=== PATIENT | female | born 1965 | race Caucasian/White ===

== ENCOUNTER 2017-03-18 06:30 | Day surgery (SDC) | payer OTHER ==
[2017-03-18] VITALS (13 sets, daily range): BP systolic 118–147; BP diastolic 72–90; PULSE 66–104; RESP 15–21; Ht 167.6 cm; Wt 82.0 kg
[~2017-03-18] VITALS: Ht 167.6 cm; Wt 82.0 kg
--- NOTE | 2017-03-18 05:14 | PREOPHP ---
DATE OF ADMISSION: 03/18/2017 HISTORY OF PRESENT ILLNESS: This is a 51-year-old lady, 5, para 2 with [address] normal menstrual period was few days prior to admission. She was admitted for D and C, hysterosc opy, possible suction curettage. The patient desires to go for estrogen replacement and the ultraso und revealed borderline thickening of the endometrium. Endometrial biopsy was attempted but the cer vix was stenotic, so she was admitted for the above procedure. The procedures were explained to the patient and she understood everything totally. The risks, benefits, alternatives, were discussed w ith her as well. PAST PERSONAL HISTORY: No history of diabetes, TB, asthma. ALLERGIES: NONE. MEDICATIONS: Takes high blood pressure medication. GYNECOLOGIC HISTORY: Had menarche at the age of 9, every 28 days interval, 3 to 4 days duration, an d moderate in amount. FAMILY HISTORY: Parents have high blood pressure and diabetes. She had head surgery 1999. She had gallbladder surgery 2007. She had 2 normal deliveries. REVIEW OF SYSTEMS: CARDIOVASCULAR: No chest pains. RESPIRATORY: No cough. GASTROINTESTINAL: No diarrhea, no vomiting. GENITOURINARY: No dysuria. PHYSICAL EXAMINATION: GENERAL: Reveals a conscious coherent lady and in acute distress. VITAL SIGNS: Her blood pressure 130/80, pulse rate 80 per minute, respirations 16 per minute. BREASTS, HEART AND LUNGS: Within normal limits. ABDOMEN: Soft. No organomegaly. PELVIC: Revealed the cervix to be firm, uterus of the upper limits of normal, and adnexa were negat leisa for masses. RECTAL EXAMINATION: Confirmed the pelvic findings. EXTREMITIES: No pedal edema. ADMITTING DIAGNOSIS: Borderline endometrial thickening, rule out hyperplasia and menopause. PLAN: The patient was planned to have the above procedure. Dictated By: AIDE ORTIZ/ILANA Conf#: [id number] DID#: [id number]
[~2017-03-18 06:30] MED LIST: GEMFIBROZIL; HYDROXYCHLOROQUINE; LEVOTHYROXINE; LOSA100T7 PO; OMEP40CA6 PO; PROTONIX
[2017-03-18] MEDS ORDERED: AMLO5TAB4 PO (07:37)
[2017-03-18] MEDS ORDERED: GEMF600T60 PO (07:41)
[2017-03-18] MEDS ORDERED: VALA500T PO (07:42)
[2017-03-18] MEDS ORDERED: THY90 PO (07:42)
[2017-03-18] MEDS ORDERED: LIDOCAINE 2% (SDV) 5 ML INJ ONE (08:12)
[2017-03-18] MEDS ORDERED: ROCURONIUM 50 MG INJ ONE (08:12)
[2017-03-18] MEDS ORDERED: MIDAZOLAM 1 MG/ML 2 ML INJ ONE (08:12)
[2017-03-18] MEDS ORDERED: GLYCOPYRROLATE 0.4 MG INJ ONE (08:12)
[2017-03-18] MEDS ORDERED: NEOSTIGMINE 3 MG/3 ML SYRINGE ONE (08:12)
[2017-03-18] MEDS ORDERED: PROPOFOL 20 ML ONE (08:12)
[2017-03-18] MEDS ORDERED: FENTAnyl 50 MCG/ML VIAL ONE (08:12)
[2017-03-18] MEDS ORDERED: DEXAMETHASONE 4 MG/ML 1 ML INJ ONE (08:25)
[2017-03-18] MEDS ORDERED: CEFAZOLIN 1 GM INJ ONE (08:25)
[2017-03-18] MEDS ORDERED: ONDANSETRON 4 MG INJ ONE (08:26)
[2017-03-18] MEDS ORDERED: ATROPINE 1 MG/10 ML SYRINGE IV PRN (08:30)
[2017-03-18] MEDS ORDERED: HYDROmorphONE (0.2 MG/ML) 10ML SYG IV PRN ×3 (08:30)
[2017-03-18] MEDS ORDERED: LABETALOL HCL 20MG INJ IV PRN (08:30)
[2017-03-18] MEDS ORDERED: OXYCODONE/ACETAMINOPHEN (5/325) TAB PO PRN ×2 (08:30)
[2017-03-18] MEDS ORDERED: MEPERIDINE 25 MG INJ IV PRN (08:30)
[2017-03-18] MEDS ORDERED: FENTAnyl 50 MCG/ML VIAL IV PRN ×2 (08:30)
[2017-03-18] MEDS ORDERED: DIPHENHYDRAMINE 50 MG INJ IV PRN (08:30)
[2017-03-18] MEDS ORDERED: morphine (1 MG/ML) 10ML SYRINGE IV PRN ×2 (08:30)
[2017-03-18] MEDS ORDERED: EPHEDrine SULFATE 50 MG/5 ML SYG IV PRN (08:30)
[2017-03-18] MEDS ORDERED: ONDANSETRON 4 MG INJ IV PRN (08:30)
[2017-03-18] MEDS ORDERED: hydrALAzine 20 MG INJ IV PRN (08:30)
[2017-03-18] MEDS ORDERED: MIDAZOLAM 1 MG/ML 2 ML INJ IV PRN (08:30)
[2017-03-18] MEDS: morphine (1 MG/ML) 10ML SYRINGE IV PRN ×2 (09:02→09:19)
--- NOTE | 2017-03-20 06:06 | OPR ---
DATE OF OPERATION: 03/18/2017 PREOPERATIVE DIAGNOSIS: Endometrial thickening, rule out endometrial hyperplasia. POSTOPERATIVE DIAGNOSIS: Pending pathology report. SURGEON: Aide Gonzales MD TREATMENT TECHNICIAN: Delroy sevilla. ANESTHESIA: General. OPERATION PERFORMED: Fractional dilatation and curettage, hysteroscopy, and suction curettage. OPERATIVE TECHNIQUE: Under general anesthesia, the patient was prepped and draped in the usual on license [facility] ion for vaginal surgery. Pelvic exam under anesthesia revealed the cervix to be firm, uterus of nor mal size, and adnexa were negative for masses. Then, the heavy weight vaginal retractor was put in place and the anterior lip of the cervix was grasped with an Allis clamp. Endocervical dilatation u p to [place] 6 was proceeded. Uterus was sounded to about 3 inches. Then, the hysteroscope was inser iván inside the uterine cavity and connected with the light source. The uterus was distended with no rmal saline. There were no polyps or fibroids seen. The uterine lining was noted to be very atroph ic. Then, endocervical curettage was performed, and a small amount of tissue was obtained. Endomet rial curettage was performed, and a small amount of tissue was obtained. Suction tip size 7 was ins erted inside the uterine cavity, and suction curettage was performed. A small amount of tissue was obtained. The uterus was intact during and after the procedure. The patient tolerated the procedur e well. Estimated blood loss was minimal. Vital signs were stable during and after the procedure. Dictated By: AIDE ORTIZ/ILANA Conf#: [id number] DID#: [id number]
== END 2017-03-18 10:35 | disposition home or self-care (01) ==
LOC: SDS 06:30
PROVIDERS: ATTEND Obstetrics & Gynecology
DX: R93.8 Abnormal findings on diagnostic imaging of other specified body structures (principal); I10 Essential (primary) hypertension; E03.9 Hypothyroidism, unspecified; Z87.891 Personal history of nicotine dependence
CPT/HCPCS: 58558; 84703; 86850; 86900; 86901; 88305; J0690; J1100; J2250; J2270; J2405; J2710; J3010; Z7512; Z7610

== ENCOUNTER 2017-04-05 21:25 | Inpatient (IN) | payer OTHER ==
[~2017-04-05] VITALS: Ht 167.6 cm; Wt 82.1 kg
[~2017-04-05 21:25] MED LIST changes: +AMLO5TAB4 PO; +GEMF600T60 PO; -GEMFIBROZIL; -HYDROXYCHLOROQUINE; -LEVOTHYROXINE; -PROTONIX; +THY90 PO; +VALA500T PO
[2017-04-05 23:40] VITALS: BP 118/66; PULSE 76; RESP 18
[2017-04-05 23:46] VITALS: Ht 167.6 cm; Wt 82.1 kg
[2017-04-06] MEDS ORDERED: morphine 4 MG/ML VIAL IV PRN (00:30)
[2017-04-06] MEDS ORDERED: traMADol 50 MG TAB PO PRN (00:30)
[2017-04-06] MEDS ORDERED: ONDANSETRON 4 MG INJ IV PRN (00:30)
[2017-04-06] MEDS: DEXTROSE 5%-0.45% NACL 1,000 ML IV SCH ×3 (01:10→18:07)
[2017-04-06 02:24] VITALS: BP 118/66; RESP 18
[2017-04-06 08:01] VITALS: BP 116/69; RESP 20
[2017-04-06] MEDS: FAMOTIDINE 20 MG INJ IV SCH ×2 (08:44→20:41)
[2017-04-06] MEDS: KETOROLAC 30 MG INJ IV PRN ×2 (12:42→20:47)
--- NOTE | 2017-04-06 18:06 | PN ---
Date/Time of Note Date/Time of Note DATE: 04/06/17 TIME: 18:03 Assessment/Plan VTE Prophylaxis VTE Prophylaxis Intervention: SCD's Lines/Catheters IV Catheter Type (from Nrsg): Peripheral IV Urinary Cath still in place: No Assessment/Plan Chief Complaint/Hosp Course 1. Abdominal pain secondary to pancreatitis and/or hepatitis LFTs are elevated, will check a hepatitis panel, will follow up on LFTs in a.m. GI consultation Start a clear liquid diet Obtain abdominal ultrasound to rule out any residual stones in the biliary system and to evaluate the liver Pain control Prophylaxis: SCDs Problems: Subjective 24 Hr Interval Summary Gastrointestinal: pain Exam/Review of Systems Vital Signs Vitals Vital Signs Date Time Temp Pulse Resp B/P Pulse Ox O2 Delivery O2 Flow Rate FiO2 04/06/17 08:01 98.1 68 20 116/69 96 04/05/17 23:40 Room Air Intake and Output 04/05/17 04/05/17 04/06/17 15:00 23:00 07:00 Intake Total 500 ml Balance 500 ml Exam Constitutional: alert Respiratory: clear to auscultation Cardiovascular: regular rate and rhythm Gastrointestinal: soft, tender, No distended Musculoskeletal: nl extremities to inspection Medications Medications Current Medications Dextrose/Sodium Chloride (D5-1/2ns) 1,000 ml @ 125 mls/hr Q8H IV Last administered on 04/06/17 08:43; Admin Dose 125 MLS/HR; Start 04/06/17 at 00:30 Morphine Sulfate (morphine) 4 mg Q4H PRN IV pain; Start 04/06/17 at 00:30 Ketorolac Tromethamine (Toradol) 30 mg Q6H PRN IV PAIN Last administered on 12:42; Admin Dose 30 MG; Start 04/06/17 at 00:30; Stop 04/09/17 at 00:29 Tramadol HCl (Ultram) 50 mg Q6H PRN PO pain Last administered on 04/06/17 01: 10; Admin Dose 50 MG; Start 04/06/17 at 00:30 Ondansetron HCl (Zofran Inj) 4 mg Q6H PRN IV NAUSEA AND/OR VOMITING; Start at 00:30 Famotidine (Pepcid Iv) 20 mg BID IV Last administered on 04/06/17 08:44; Admin Dose 20 MG; Start 04/06/17 at 09:00 MAMADOU ALICEA April 06, 2017 18:06
[2017-04-06 20:02] VITALS: BP 130/75; RESP 18
[2017-04-07] MEDS: DEXTROSE 5%-0.45% NACL 1,000 ML IV SCH ×5 (00:30→22:35)
[2017-04-07 05:55] LABS: ADD SCAN DIFF NO; HAAIG REFLEX REFLEX FILED
[2017-04-07 06:10] LABS: BASOPHILS % 0.6 % (0.0-2.0); EOSINOPHILS # 0.2 10^3/ul (0.0-0.5); HEMATOCRIT 35.4 % (37.0-47.0); HEMOGLOBIN 12.3 g/dl (12.0-16.0); LYMPHOCYTES # 1.4 10^3/ul (0.8-2.9); LYMPHOCYTES % 41.3 % (15.0-51.0); MEAN CORPUSCULAR HEMOGLOBIN 30.3 pg (29.0-33.0); MEAN CORPUSCULAR HGB CONC 34.7 g/dl (32.0-37.0); MEAN CORPUSCULAR VOLUME 87.2 fl (82.0-101.0); MEAN PLATELET VOLUME 10.6 fl (7.4-10.4); MONOCYTE # 0.4 10^3/ul (0.3-0.9); MONOCYTES % 12.7 % (0.0-11.0); NEUTROPHIL # 1.4 10^3/ul (1.6-7.5); NEUTROPHILS % 40.1 % (39.0-77.0); PLATELET COUNT 221 10^3/UL (140-415); RED BLOOD COUNT 4.06 10^6/ul (4.20-5.40); RED CELL DISTRIBUTION WIDTH 14.6 % (11.5-14.5); WHITE BLOOD COUNT 3.4 10^3/ul (4.8-10.8)
[2017-04-07 06:33] LABS: ALBUMIN 3.2 g/dl (3.3-4.9); ALBUMIN/GLOBULIN RATIO 1.18; BILIRUBIN,INDIRECT 0.3 mg/dl (0-1.1); BILIRUBIN,TOTAL 0.3 mg/dl (0.2-1.3); CALCIUM 8.5 mg/dl (8.4-10.2); CHOL/HDL RATIO 3.9 RATIO; CREATININE 0.59 mg/dl (0.44-1.00); MAGNESIUM 1.9 mg/dl (1.7-2.5); PHOSPHORUS 2.5 mg/dl (2.5-4.9); POTASSIUM 3.3 mmol/L (3.5-5.1); TOTAL PROTEIN 5.9 g/dl (6.1-8.1)
[2017-04-07] MEDS: KETOROLAC 30 MG INJ IV PRN (07:13)
[2017-04-07 07:44] LABS: HEPATITIS B CORE ANTIBODY NEGATIVE (NEGATIVE)
[2017-04-07 08:09] VITALS: BP 139/83; RESP 18
[2017-04-07] MEDS: FAMOTIDINE 20 MG INJ IV SCH (08:48)
--- NOTE | 2017-04-07 10:10 | RADRPT ---
PROCEDURE: US Abdomen. CLINICAL INDICATION: abdominal pain TECHNIQUE: Multiple real-time images were acquired of the patient's abdomen utilizing a high reso lution transducer. COMPARISON: CT 05/14/2015 FINDINGS: The liver demonstrates normal echogenicity and size and no focal solid appearing lesions are seen. There is a 2.3 cm right hepatic cyst which was present on prior CT. The gallbladder is removed. No intra or extrahepatic biliary dilatation is seen. The common bile duct measures 6 mm in maximal dim ension. The pancreas demonstrates a indeterminate echogenic focus measuring 1.5 cm near the head of the pancreas not fully characterize by this exam. No free fluid is identified. The right kidney measures 12.7 cm without hydronephrosis. Visualized portion of the aorta and IVC are unremarkable. IMPRESSION: Possible pancreatic echogenic structure can be better assessed with a CT of the abdomen. RPTAT: AA .Parker Trevizo MD, Date Time Electronically viewed and signed by .Parker Trevizo MD, MD on 04/07/2017 10:10 .J/
[2017-04-07] MEDS ORDERED: POTASSIUM CHLORIDE 250 ML IVPB ONE (12:00)
[2017-04-07] MEDS ORDERED: NON-FORMULARY/PATIENT OWN MED (Omeprazole* 40 MG) PO SCH (16:00)
[2017-04-07] MEDS ORDERED: BARIUM SULF 2% 450 ML BTL (BERRY SMOOTHIE) PO ONE (16:00)
[2017-04-07] MEDS ORDERED: VALACYCLOVIR 500 MG TAB PO SCH (16:00)
[2017-04-07] MEDS ORDERED: BARIUM SULFATE 0.1% 450 ML BTL (VOLUMEN) PO ONE (16:00)
--- NOTE | 2017-04-07 16:31 | PN ---
Date/Time of Note Date/Time of Note DATE: 04/07/17 TIME: 16:10 Assessment/Plan VTE Prophylaxis VTE Prophylaxis Intervention: ambulation, SCD's Lines/Catheters IV Catheter Type (from Nrs): Peripheral IV Urinary Cath still in place: No Assessment/Plan Assessment/Plan 1. Epigastric abdominal pain with bloating, nausea vomiting, and distention 2. Vaginal burning and pain for the last 1 year with history of herpes genitalia on valacyclovir likely secondary to postherpetic neuralgia * Sounds like patient has been treated extensively for Nathaly with no improvement and even with hormonal therapy with no improvement as well. 3. Hypertension: Controlled 4. Dyslipidemia on gemfibrozil which could be causing her transaminitis 5. Hypothyroidism on Synthroid 6. Hypokalemia 7. Mild hyponatremia 8. Abnormal pancreatic density on ultrasound Plan: * Will order a CT of the abdomen with pancreatic protocol to evaluate * will increase patient's valacyclovir to treatment doses / Will start patient on Lyrica to help with neuralgia * Hold gemfibrozil for transaminitis /triglyceride levels are within normal range /patient has only low HDL for which we can treat with fish oil. * For possible endoscopy, GI consultation /put patient on twice daily PPI. * Will also get a [employer] consultation. * Further interventions per clinical course * Plan of care has been discussed with patient questions answered. Subjective 24 Hr Interval Summary Free Text/Dictation Patient has multiple complaints. 1. severe burning sensation in the vagina. Burning sensation can be so bad she rates it as a 10 out of 10 at times. It has adversely affected her life and she is getting depressed. Patient states that she has been treated with antifungal therapy, she has also been treated with hormonal therapy with multiple testing and her doctors have not been able to figure out was going on. Upon my review of her medications, patient is on valacyclovir at suppressants doses. 2. Patient also complaining of abdominal distention fullness and bloating associated with burning sensation in the back of her mouth and a lot of reflux symptoms. Patient is amenable to endoscopy. 3. Patient complaining of supraorbital and infraorbital swelling up on a daily awakening that improves as the day progresses Exam/Review of Systems Vital Signs Vitals Vital Signs Date Time Temp Pulse Resp B/P Pulse Ox O2 Delivery O2 Flow Rate FiO2 04/07/17 08:09 97.8 68 18 139/83 96 04/05/17 23:40 Room Air Intake and Output 04/06/17 04/06/17 04/07/17 15:00 23:00 07:00 Intake Total 500 ml 1000 ml 1500 ml Balance 500 ml 1000 ml 1500 ml Exam Constitutional: alert Respiratory: clear to auscultation Cardiovascular: regular rate and rhythm Gastrointestinal: soft, tender, No distended Musculoskeletal: nl extremities to inspection Genitourinary - Female: other (Patient has normal adnexa however she does have erythema around her labia and rectal areas. Erythema does not extend to upper thighs. No blister us lesions. More of a macular rash.) Results Result Diagram: 04/07/17 0506 04/07/17 0506 Results 24 hrs Laboratory Tests Test 04/07/17 05:06 White Blood Count 3.4 #L Red Blood Count 4.06 L Hemoglobin 12.3 Hematocrit 35.4 L Mean Corpuscular Volume 87.2 Mean Corpuscular Hemoglobin 30.3 Mean Corpuscular Hemoglobin Concent 34.7 Red Cell Distribution Width 14.6 H Platelet Count 221 Mean Platelet Volume 10.6 #H Neutrophils % 40.1 Lymphocytes % 41.3 Monocytes % 12.7 H Eosinophils % 5.0 Basophils % 0.6 Nucleated Red Blood Cells % 0.0 Neutrophils # 1.4 L Lymphocytes # 1.4 Monocytes # 0.4 Eosinophils # 0.2 Basophils # 0.0 Nucleated Red Blood Cells # 0.0 Sodium Level 145 H Potassium Level 3.3 L Chloride Level 113 H Carbon Dioxide Level 25 Anion Gap 10 Blood Urea Nitrogen 6 L Creatinine 0.59 Glucose Level 95 Hemoglobin A1c 5.6 Calcium Level 8.5 Phosphorus Level 2.5 Magnesium Level 1.9 Total Bilirubin 0.3 Direct Bilirubin 0.00 Indirect Bilirubin 0.3 Aspartate Amino Transf (AST/SGOT) 238 H Alanine Aminotransferase (ALT/SGPT) 499 H Alkaline Phosphatase 154 H Total Protein 5.9 L Albumin 3.2 L Globulin 2.70 Albumin/Globulin Ratio 1.18 Triglycerides Level 93 Cholesterol Level 127 LDL Cholesterol, Calculated 76 HDL Cholesterol 32 L Cholesterol/HDL Ratio 3.9 Amylase Level 53 Lipase 75 Hepatitis B Surface Antigen NEGATIVE Hepatitis B Core Total Antibody NEGATIVE Hepatitis C Antibody NEGATIVE Medications Medications Current Medications Dextrose/Sodium Chloride (D5-1/2ns) 1,000 ml @ 125 mls/hr Q8H IV Last administered on 04/07/17 01:49; Admin Dose 125 MLS/HR; Start 04/06/17 at 00:30 Morphine Sulfate (morphine) 4 mg Q4H PRN IV pain; Start 04/06/17 at 00:30 Ketorolac Tromethamine (Toradol) 30 mg Q6H PRN IV PAIN Last administered on 07:13; Admin Dose 30 MG; Start 04/06/17 at 00:30; Stop 04/09/17 at 00:29 Tramadol HCl (Ultram) 50 mg Q6H PRN PO pain Last administered on 04/06/17 01: 10; Admin Dose 50 MG; Start 04/06/17 at 00:30 Ondansetron HCl (Zofran Inj) 4 mg Q6H PRN IV NAUSEA AND/OR VOMITING; Start at 00:30 Famotidine (Pepcid Iv) 20 mg BID IV Last administered on 04/07/17 08:48; Admin Dose 20 MG; Start 04/06/17 at 09:00 Amlodipine Besylate (Norvasc) 5 mg DAILY PO ; Start 04/07/17 at 16:00 Gemfibrozil (Lopid) 600 mg BID PO ; Start 04/07/17 at 21:00 Losartan Potassium (Cozaar) 100 mg DAILY PO ; Start 04/07/17 at 16:00 Thyroid ([place] Thyroid) 90 mg DAILY PO ; Start 04/07/17 at 17:00 Pregabalin (Lyrica) 75 mg BID PO ; Start 04/07/17 at 21:00 Pantoprazole (Protonix Iv) 40 mg BID@06,18 IV ; Start 04/07/17 at 18:00 Valacyclovir HCl (Valtrex) 1,000 mg BID PO ; Start 04/07/17 at 18:00 DIONI ALEXANDER April 07, 2017 16:20
[2017-04-07] MEDS ORDERED: IOHEXOL 350MG/ML 50 ML BTL ONE (17:20)
[2017-04-07] MEDS ORDERED: SOD CHLORIDE 0.9% 100 ML ONE (17:20)
[2017-04-07] MEDS ORDERED: IOHEXOL 100 ML ONE (17:20)
[2017-04-07] MEDS: AMLODIPINE 5 MG TAB PO SCH (17:45)
[2017-04-07] MEDS: VALACYCLOVIR 500 MG TAB PO SCH (17:45)
[2017-04-07 17:46] VITALS: BP 163/99; PULSE 71
[2017-04-07] MEDS: PANTOPRAZOLE 40 MG INJ IV SCH (17:46)
[2017-04-07] MEDS: THYROID 30 MG TAB PO SCH (17:46)
[2017-04-07] MEDS: LOSARTAN 50 MG TAB PO SCH (17:46)
--- NOTE | 2017-04-07 18:26 | RADRPT ---
PROCEDURE: CT abdomen with and without contrast. Pancreatic protocol. Pelvis with protocol. CLINICAL INDICATION: abdominal pain TECHNIQUE: CT scan of the abdomen with and without contrast was performed on a multi-slice CT scan ner . Contrast enhanced CT pelvis is also performed. The patient was scanned before after administra tion of 100 cc of Omnipaque 350 intravenous contrast. Imaging was obtained in the arterial and dinesh l venous phase per pancreas protocol. Sagittal and coronal reformatted images were obtained from th e axial source images. One or more of the following dose reduction techniques were used: - Automated exposure control. - Adjustment of the mA and/or kV according to patient size. - Use of iterative reconstruction technique. DLP 1684.4 mGycm. CTDIvol 13.4, 11.5, and 10.4 mGy COMPARISON: 05/24/2015 FINDINGS: The lung bases are clear. There is homogeneous density of the pancreas with uniform enhancement. There is no surrounding infl ammation and no evidence of abnormal enhancing mass or cystic lesion. There are no enlarged peripan creatic lymph nodes and no evidence of pancreatic ductal dilatation. There is normal density and enhancement of the liver with no enhancing lesion or biliary ductal dila tation. Nonenhancing hepatic cysts are present which appears stable. The gallbladder is removed, an d the portal vein is intact without thrombus. The spleen is unremarkable without mass. The adrenal glands are within normal limits without mass. The kidneys enhance symmetrically bilaterally without hydronephrosis or perinephric stranding.There are no renal calculi present. There is no bowel obstruction or focal bowel inflammation. The appendix is unremarkable. There is no free air. There are no enlarged lymph nodes. There is mild visible aortic atherosclerosis without aneurysmal dilatation. Degenerative changes are seen in the lumbar spine with no acute osseous abnormality. There is trace fluid seen in the pelvis cul-de-sac. Follicular changes are seen in the ovaries bila terally. There is trace heterogeneity of the uterus. RPTAT: AA IMPRESSION: Normal appearance of the pancreas with no evidence of abnormal enhancement, inflammation, mass, or c ystic lesion. No evidence of bowel obstruction or inflammation. Mild visible aortic atherosclerosis is present. There is mild heterogeneity of the uterus which could represent the presence of fibroids and this ca n be correlated with pelvic ultrasound. .Parker Trevizo MD, MD Date Time Electronically viewed and signed by .Parker Trevizo MD, MD on 04/07/2017 18:26 .J/
[2017-04-07] MEDS: PREGABALIN 75 MG CAP PO SCH (20:08)
[2017-04-07 20:24] VITALS: BP 131/75; RESP 18
[2017-04-07] MEDS ORDERED: GEMFIBROZIL 600 MG TAB PO SCH (21:00)
[2017-04-07 21:33] LABS: ADD UMIC NO; URINE BILIRUBIN (Dip) NEGATIVE (NEGATIVE); URINE BLOOD (Dip) NEGATIVE (NEGATIVE); URINE COLOR LT. YELLOW (YELLOW); URINE GLUCOSE (Dip) NEGATIVE (NEGATIVE); URINE KETONES (Dip) NEGATIVE (NEGATIVE); URINE LEUKOCYTE ESTERASE (Dip) NEGATIVE (NEGATIVE); URINE NITRITE (Dip) NEGATIVE (NEGATIVE); URINE TOTAL PROTEIN (Dip) NEGATIVE (NEGATIVE); URINE UROBILINOGEN (Dip) 0.2 E.U./dL (0.1-1.0)
[2017-04-08] MEDS: KETOROLAC 30 MG INJ IV PRN (02:06)
[2017-04-08] MEDS: PANTOPRAZOLE 40 MG INJ IV SCH ×2 (05:19→17:14)
[2017-04-08 05:31] LABS: ADD SCAN DIFF NO
[2017-04-08 05:38] LABS: BASOPHILS % 0.6 % (0.0-2.0); EOSINOPHILS # 0.2 10^3/ul (0.0-0.5); EOSINOPHILS % 3.1 % (0.0-7.0); HEMATOCRIT 37.8 % (37.0-47.0); LYMPHOCYTES # 2.1 10^3/ul (0.8-2.9); LYMPHOCYTES % 42.6 % (15.0-51.0); MEAN CORPUSCULAR HEMOGLOBIN 30.2 pg (29.0-33.0); MEAN CORPUSCULAR HGB CONC 34.4 g/dl (32.0-37.0); MEAN CORPUSCULAR VOLUME 87.9 fl (82.0-101.0); MEAN PLATELET VOLUME 10.2 fl (7.4-10.4); MONOCYTE # 0.5 10^3/ul (0.3-0.9); NEUTROPHIL # 2.1 10^3/ul (1.6-7.5); NEUTROPHILS % 42.5 % (39.0-77.0); PLATELET COUNT 228 10^3/UL (140-415); RED CELL DISTRIBUTION WIDTH 14.6 % (11.5-14.5); WHITE BLOOD COUNT 4.8 10^3/ul (4.8-10.8)
[2017-04-08 05:58] LABS: CREATININE 0.65 mg/dl (0.44-1.00); MAGNESIUM 1.9 mg/dl (1.7-2.5); POTASSIUM 3.6 mmol/L (3.5-5.1)
[2017-04-08 06:26] LABS: THYROID STIMULATING HORMONE 4.56 MIU/L (0.465-4.680)
[2017-04-08] MEDS: DEXTROSE 5%-0.45% NACL 1,000 ML IV SCH ×2 (06:35→17:11)
[2017-04-08 08:14] VITALS: BP 109/80; RESP 18
[2017-04-08] MEDS: THYROID 30 MG TAB PO SCH (08:49)
[2017-04-08] MEDS: VALACYCLOVIR 500 MG TAB PO SCH ×2 (08:50→21:04)
[2017-04-08] MEDS: LOSARTAN 50 MG TAB PO SCH (08:54)
[2017-04-08] MEDS: AMLODIPINE 5 MG TAB PO SCH (08:55)
[2017-04-08] MEDS: PREGABALIN 75 MG CAP PO SCH ×2 (09:06→21:04)
[2017-04-08] MEDS ORDERED: POTASSIUM CHLORIDE (SR) 20 MEQ TAB PO STA (11:55)
--- NOTE | 2017-04-08 11:57 | DS ---
Date/Time of Note Date/Time of Note DATE: 04/08/17 TIME: 11:54 Discharge Summary Admission/Discharge Info Admit Date/Time April 05, 2017 at 23:53 Discharge Date/Time Patient Condition: Stable Hospital Course 1. Abdominal pain secondary to pancreatitis and/or hepatitis LFTs are elevated, will check a hepatitis panel, will follow up on LFTs in a.m. GI consultation Start a clear liquid diet Obtain abdominal ultrasound to rule out any residual stones in the biliary system and to evaluate the liver Pain control Prophylaxis: SCDs Home Meds Active Scripts Gabapentin* (Gabapentin*) 300 Mg Capsule, 300 MG PO TID, #90 CAP 2 Refills 1. Use only if your insurance will not pay for Lyrica 2. Gradually increase dose by taking 1 tablet daily at bedtime for 2-3 days, then increase to 2 tablets daily for another 2-3 days, then increase to recommended dose 3 times daily. Prov:DIONI ALEXANDER 04/10/17 [place]-3 Fatty Acids/Fish Oil (Fish Oil 1,000 mg Capsule) 1 Each Capsule, 1 EACH PO BID for 30 Days, CAP 2 Refills Prov:DIONI ALEXANDER. 04/10/17 Nystatin-Tramcinolone* (Mycolog*) 15 Grams Cr, 1 APPLIC TOP BID for 7 Days Prov:DIONI ALEXANDER 04/09/17 Sucralfate (Carafate) 1 Gm Tablet, 1 GM PO QID for 30 Days, TAB Prov:DIONI ALEXANDER 04/09/17 Tramadol HCl (Tramadol HCl) 50 Mg Tablet, 50 MG PO Q6H Y for pain, #60 TAB Prov:DIONI ALEXANDER 04/09/17 Pregabalin* (Lyrica*) 75 Mg Capsule, 75 MG PO BID for 30 Days, CAP 3 Refills Prov:DIONI ALEXANDER Cameron 04/09/17 Valacyclovir Hcl* (Valacyclovir Hcl*) 500 Mg Tablet, 1000 MG PO BID for 8 Days, TAB Prov:DIONI ALEXANDER Cameron 04/09/17 Valacyclovir Hcl* (Valacyclovir Hcl*) 500 Mg Tablet, 500 MG PO DAILY for 30 Days , TAB 2 Refills resume April 15 2017 Prov:DIONI ALEXANDER 04/09/17 Omeprazole* (Omeprazole*) 40 Mg Capsule., 40 MG PO BID for 30 Days, CAP Prov:DIONI ALEXANDER 04/09/17 Reported Medications Thyroid* ([place] Thyroid*) 90 Mg Tablet, 90 MG PO DAILY, TAB 03/18/17 Gemfibrozil* (Gemfibrozil*) 600 Mg Tablet, 600 MG PO BID, TAB 03/18/17 Amlodipine Besylate* (Norvasc*) 5 Mg Tablet, 5 MG PO DAILY, TAB 03/18/17 Losartan Potassium* (Losartan Potassium*) 100 Mg Tablet, 100 MG PO DAILY, TAB 05/24/15 Primary Care Provider Not On Staff Doctor Pending Labs Laboratory Tests Test 04/07/17 20:00 04/08/17 05:11 Urine Color LT. YELLOW (YELLOW) Urine Clarity CLEAR (CLEAR) Urine pH 6.5 (5.0-9.0) Urine Specific [place] <=1.005 (1.003-1.030) Urine Ketones NEGATIVE (NEGATIVE) Urine Nitrite NEGATIVE (NEGATIVE) Urine Bilirubin NEGATIVE (NEGATIVE) Urine Urobilinogen 0.2 E.U./dL (0.1-1.0) Urine Leukocyte Esterase NEGATIVE (NEGATIVE) Urine Hemoglobin NEGATIVE (NEGATIVE) Urine Glucose NEGATIVE% (NEGATIVE) Urine Total Protein NEGATIVE (NEGATIVE) White Blood Count 4.810^3/ul (4.8-10.8) Red Blood Count 4.3010^6/ul (4.20-5.40) Hemoglobin 13.0g/dl (12.0-16.0) Hematocrit 37.8% (37.0-47.0) Mean Corpuscular Volume 87.9fl (82.0-101.0) Mean Corpuscular Hemoglobin 30.2pg (29.0-33.0) Mean Corpuscular Hemoglobin Concent 34.4g/dl (32.0-37.0) Red Cell Distribution Width 14.6% (11.5-14.5) Platelet Count 41203^3/UL (140-415) Mean Platelet Volume 10.2fl (7.4-10.4) Neutrophils % 42.5% (39.0-77.0) Lymphocytes % 42.6% (15.0-51.0) Monocytes % 11.0% (0.0-11.0) Eosinophils % 3.1% (0.0-7.0) Basophils % 0.6% (0.0-2.0) Nucleated Red Blood Cells % 0.0/100WBC (0.0-0.0) Neutrophils # 2.110^3/ul (1.6-7.5) Lymphocytes # 2.110^3/ul (0.8-2.9) Monocytes # 0.510^3/ul (0.3-0.9) Eosinophils # 0.210^3/ul (0.0-0.5) Basophils # 0.010^3/ul (0.0-0.1) Nucleated Red Blood Cells # 0.010^3/ul (0.0-0.0) Sodium Level 140mmol/L (135-144) Potassium Level 3.6mmol/L (3.5-5.1) Chloride Level 110mmol/L (97-110) Carbon Dioxide Level 26mmol/L (21-31) Anion Gap 8 (8-16) Blood Urea Nitrogen 4mg/dl (7-20) Creatinine 0.65mg/dl (0.44-1.00) Glucose Level 97mg/dl (70-220) Calcium Level 9.0mg/dl (8.4-10.2) Magnesium Level 1.9mg/dl (1.7-2.5) Thyroid Stimulating Hormone (TSH) 4.560MIU/L (0.465-4.680) DIONI ALEXANDER April 08, 2017 11:56
--- NOTE | 2017-04-08 11:59 | QN ---
Documentation Comment Patient seen and evaluated. Plan for possible discharge home today. We discussed extensively treatment for gastritis and acid reflux. It turns out that patient does see Dr. Degroot as outpatient, and has had recent endoscopy. She tells me they found acid reflux and she was placed on Nexium which she was not very compliant with. I have advised that she would have to take Nexium twice a day for at least 2 weeks to month to improve her symptoms. GI consultation is still pending at this time. Have encouraged patient to at least speak with the GI doctor, and she may continue follow-up as outpatient. Regarding her vulvar pain. We discussed the possibility of postherpetic neuralgia causing her discomfort. I explained to her that pain is long in duration and quite debilitating. She has been started on Lyrica, and we are still awaiting [employer] review to see if they have any further recommendations regarding her care. Depending on the findings, she would be discharged for outpatient follow-up if they clear her. In the interim we will commence her on a regular diet, begin discharge planning , and review later after consultants have put in the recommendations. DIONI ALEXANDER. April 08, 2017 11:59
[2017-04-08 12:09] LABS: ALBUMIN 3.5 g/dl (3.3-4.9); BILIRUBIN,INDIRECT 0.2 mg/dl (0-1.1); BILIRUBIN,TOTAL 0.2 mg/dl (0.2-1.3)
[2017-04-08] MEDS: SUCRALFATE 1 GM TAB PO SCH ×3 (12:24→21:04)
--- NOTE | 2017-04-08 14:38 | CONS ---
Date/Time of Note Date/Time of Note DATE: 04/08/17 TIME: 14:21 Assessment/Plan Assessment/Plan Additional Assessment/Plan Assessment * Abdominal pain R/O GERD * History of endoscopy/colonoscopy 07/2016 1. Gastroesophageal reflux disease. Gastritis with erosions. . Gastric mucosal biopsies were taken for Helicobacter pylori test. . Colonoscopy all the way to the cecum. Internal hemorrhoids. * Elevated transaminitis likely due to fenofibrate medication Plan * EGD risks and benefit explained to patient and agreed with procedure * continue PPI Consultation Date/Type/Reason Admit Date/Time April 05, 2017 at 23:53 Date of Consultation: April 08, 2017 Type of Consultation: Gastroenterolgy Reason for Consultation Abdominal pain/elevated transaminase Referring Provider: DIONI ALEXANDER Hx of Present Illness 51 year old female brought to emergency room complaining of epigastric pain and vulvar pain.Present condition started 6 days prior to consult as epigastric pain non radiating with associated nausea and vomiting,bloating,pyrosis.Patient denies any fever ,chest pain ,hematemesis,nor hematochezia She claimed to have cholecystectomy few years ago,taking fenofibrate for her hyperlipidemia Patient had EGD colonoscopy lasts Jul 2016 Gastroesophageal reflux disease.. Gastritis with erosions. Gastric mucosal biopsies were taken for Helicobacter pylori test. Colonoscopy all the way to the cecum. Internal hemorrhoids. No colon neoplasm was identified. Emergency room course revealed CT scan Normal appearance of the pancreas with no evidence of abnormal enhancement, inflammation, mass, or cystic lesion.No evidence of bowel obstruction or inflammation. Mild visible aortic atherosclerosis is present.There is mild heterogeneity of the uterus which could represent the presence of fibroids and this can be correlated with pelvic ultrasound.. Presently.patient denies any abdominal pain and vomiting but transaminase level is improving Gastrointestinal: pain Past Medical History Medical History: other (gerd) Past Surgical History Past Surgical Hx: cholecystectomy Family History Significant Family History: no pertinent family hx Social History Smoking Status: Current every day smoker Exam/Review of Systems Vital Signs Vitals Vital Signs Date Time Temp Pulse Resp B/P Pulse Ox O2 Delivery O2 Flow Rate FiO2 04/08/17 08:14 98.0 64 18 109/80 98 04/05/17 23:40 Room Air Intake and Output 04/07/17 04/07/17 04/08/17 15:00 23:00 07:00 Intake Total 1190 ml 1680.0 ml Balance 1190 ml 1680.0 ml Exam Constitutional: alert, oriented, well developed Psych: no complaints Head: atraumatic, normocephalic Eyes: PERRL, nl conjunctiva, nl sclera Neck: non-tender, supple Respiratory: clear to auscultation, normal air movement Cardiovascular: nl pulses, regular rate and rhythm Gastrointestinal: nl liver, spleen, non-tender, soft Musculoskeletal: nl extremities to inspection, nl gait and stance Extremities: normal pulses Neurological: UNDERGROUND REPAIRER II-XII intact, nl mental status, nl speech, nl strength Skin: nl turgor, No rash or lesions Lymph: nl lymph nodes Results Result Diagram: 04/08/17 0511 04/08/17 0511 Results 24 hrs Laboratory Tests Test 04/07/17 20:00 04/08/17 05:11 Urine Color LT. YELLOW Urine Clarity CLEAR Urine pH 6.5 Urine Specific [place] <=1.005 L Urine Ketones NEGATIVE Urine Nitrite NEGATIVE Urine Bilirubin NEGATIVE Urine Urobilinogen 0.2 E.U./dL Urine Leukocyte Esterase NEGATIVE Urine Hemoglobin NEGATIVE Urine Glucose NEGATIVE Urine Total Protein NEGATIVE White Blood Count 4.8 # Red Blood Count 4.30 Hemoglobin 13.0 Hematocrit 37.8 Mean Corpuscular Volume 87.9 Mean Corpuscular Hemoglobin 30.2 Mean Corpuscular Hemoglobin Concent 34.4 Red Cell Distribution Width 14.6 H Platelet Count 228 Mean Platelet Volume 10.2 Neutrophils % 42.5 Lymphocytes % 42.6 Monocytes % 11.0 Eosinophils % 3.1 Basophils % 0.6 Nucleated Red Blood Cells % 0.0 Neutrophils # 2.1 Lymphocytes # 2.1 Monocytes # 0.5 Eosinophils # 0.2 Basophils # 0.0 Nucleated Red Blood Cells # 0.0 Sodium Level 140 Potassium Level 3.6 Chloride Level 110 Carbon Dioxide Level 26 Anion Gap 8 Blood Urea Nitrogen 4 L Creatinine 0.65 Glucose Level 97 Calcium Level 9.0 Magnesium Level 1.9 Total Bilirubin 0.2 Direct Bilirubin 0.00 Indirect Bilirubin 0.2 Aspartate Amino Transf (AST/SGOT) 97 H Alanine Aminotransferase (ALT/SGPT) 367 H Alkaline Phosphatase 140 H Total Protein 6.0 L Albumin 3.5 Thyroid Stimulating Hormone (TSH) 4.560 Medications Medications Current Medications Dextrose/Sodium Chloride (D5-1/2ns) 1,000 ml @ 125 mls/hr Q8H IV Last administered on 04/08/17 06:35; Admin Dose 125 MLS/HR; Start 04/06/17 at 00:30 Morphine Sulfate (morphine) 4 mg Q4H PRN IV pain; Start 04/06/17 at 00:30 Ketorolac Tromethamine (Toradol) 30 mg Q6H PRN IV PAIN Last administered on 02:06; Admin Dose 30 MG; Start 04/06/17 at 00:30; Stop 04/09/17 at 00:29 Tramadol HCl (Ultram) 50 mg Q6H PRN PO pain Last administered on 04/06/17 01: 10; Admin Dose 50 MG; Start 04/06/17 at 00:30 Ondansetron HCl (Zofran Inj) 4 mg Q6H PRN IV NAUSEA AND/OR VOMITING; Start at 00:30 Amlodipine Besylate (Norvasc) 5 mg DAILY PO Last administered on 04/08/17 08: 55; Admin Dose 5 MG; Start 04/07/17 at 16:00 Losartan Potassium (Cozaar) 100 mg DAILY PO Last administered on 04/08/17 08: 54; Admin Dose 100 MG; Start 04/07/17 at 16:00 Thyroid ([place] Thyroid) 90 mg DAILY PO Last administered on 04/08/17 08:49; Admin Dose 90 MG; Start 04/07/17 at 17:00 Pregabalin (Lyrica) 75 mg BID PO Last administered on 04/08/17 09:06; Admin Dose 75 MG; Start 04/07/17 at 21:00 Pantoprazole (Protonix Iv) 40 mg BID@06,18 IV Last administered on 04/08/17 05 :19; Admin Dose 40 MG; Start 04/07/17 at 18:00 Valacyclovir HCl (Valtrex) 1,000 mg BID PO Last administered on 04/08/17 08:50 ; Admin Dose 1,000 MG; Start 04/07/17 at 18:00 Sucralfate (Carafate) 1 gm QID PO Last administered on 04/08/17 12:24; Admin Dose 1 GM; Start 04/08/17 at 13:00 ZEN PARKER MD April 08, 2017 14:33
--- NOTE | 2017-04-08 16:18 | CONS ---
Date/Time of Note Date/Time of Note DATE: 04/08/17 TIME: 15:47 Consultation Date/Type/Reason Admit Date/Time April 08, 2017 CLINICAL CARE MANAGER hospital consult Reason for Consultation This patient is a 51 years old 5 para 2 3 who was admitted in the hospital 4 days ago with a diagnosis of pancreatitis or possible liver disease. Due to vulvar and perianal lesions and pain in his symphysis pubic area a CLINICAL CARE MANAGER consult was requested. Some information about the patient is as follows : 51 year old female brought to emergency room complaining of epigastric pain and vulvar pain.Present condition started 6 days prior to consult as epigastric pain non radiating with associated nausea and vomiting,bloating,pyrosis.Patient denies any fever ,chest pain ,hematemesis,nor hematochezia She claimed to have cholecystectomy few years ago,taking fenofibrate for her hyperlipidemia Patient had EGD colonoscopy lasts Jul 2016 Gastroesophageal reflux disease.. Gastritis with erosions. Gastric mucosal biopsies were taken for Helicobacter pylori test. Colonoscopy all the way to the cecum. Internal hemorrhoids. No colon neoplasm was identified. Emergency room course revealed CT scan: Normal appearance of the pancreas with no evidence of abnormal enhancement, inflammation, mass, or cystic lesion.No evidence of bowel obstruction or inflammation. Mild visible aortic atherosclerosis is present.There is mild heterogeneity of the uterus which could represent the presence of fibroids and this can be correlated with pelvic ultrasound.. Presently.patient denies any abdominal pain and vomiting and transaminase level is improving On my examination today she is a well-developed well-nourished lady who is comfortably lying on her bed. On questioning she is complaining of some pain on her pubic area. Obviously she has pain in her upper abdomen ,side and the back as well as suprapubic area. Diagnosis by internal medicine ; most likely pancreatitis and less likely hepatitis.;High LFT. She has a history of cholecystectomy about 5 years ago. On my examination her abdomen is soft she has slight tenderness at the suprapubic ,area . the area around the vulva including the lower abdomen upper thighs and rectal area has evidence of a superficial fungal infection Pelvic examination is basically normal except for slight vaginal bleeding. Her periods began to become irregular ,most likely due to perimenopausal state. Laboratory Tests Test 04/07/17 20:00 04/08/17 05:11 Urine Color LT. YELLOW Urine Clarity CLEAR Urine pH 6.5 Urine Specific [place] <=1.005 Urine Ketones NEGATIVE Urine Nitrite NEGATIVE Urine Bilirubin NEGATIVE Urine Urobilinogen 0.2 E.U./dL Urine Leukocyte Esterase NEGATIVE Urine Hemoglobin NEGATIVE Urine Glucose NEGATIVE% Urine Total Protein NEGATIVE White Blood Count 4.810^3/ul Red Blood Count 4.3010^6/ul Hemoglobin 13.0g/dl Hematocrit 37.8% Mean Corpuscular Volume 87.9fl Mean Corpuscular Hemoglobin 30.2pg Mean Corpuscular Hemoglobin Concent 34.4g/dl Red Cell Distribution Width 14.6% Platelet Count 58660^3/UL Mean Platelet Volume 10.2fl Neutrophils % 42.5% Lymphocytes % 42.6% Monocytes % 11.0% Eosinophils % 3.1% Basophils % 0.6% Nucleated Red Blood Cells % 0.0/100WBC Neutrophils # 2.110^3/ul Lymphocytes # 2.110^3/ul Monocytes # 0.510^3/ul Eosinophils # 0.210^3/ul Basophils # 0.010^3/ul Nucleated Red Blood Cells # 0.010^3/ul Sodium Level 140mmol/L Potassium Level 3.6mmol/L Chloride Level 110mmol/L Carbon Dioxide Level 26mmol/L Anion Gap 8 Blood Urea Nitrogen 4mg/dl Creatinine 0.65mg/dl Glucose Level 97mg/dl Calcium Level 9.0mg/dl Magnesium Level 1.9mg/dl Total Bilirubin 0.2mg/dl Direct Bilirubin 0.00mg/dl Indirect Bilirubin 0.2mg/dl Aspartate Amino Transf (AST/SGOT) 97IU/L Alanine Aminotransferase (ALT/SGPT) 367IU/L Alkaline Phosphatase 140IU/L Total Protein 6.0g/dl Albumin 3.5g/dl Thyroid Stimulating Hormone (TSH) 4.560MIU/L HIV (1&2) Antibody NEGATIVE Current Medications Medications (Trade) Dose Ordered Sig/Adonay Route PRN Reason Start Time Stop Time Status Last Admin Dose Admin Dextrose/Sodium Chloride (D5-1/2ns) 1,000 ml @ 125 mls/hr Q8H IV 04/06/17 00:30 04/08/17 06:35 125 MLS/HR Morphine Sulfate (morphine) 4 mg Q4H PRN IV pain 04/06/17 00:30 Ketorolac Tromethamine (Toradol) 30 mg Q6H PRN IV PAIN 04/06/17 00:30 04/09/17 00:29 04/08/17 02:06 30 MG Tramadol HCl (Ultram) 50 mg Q6H PRN PO pain 04/06/17 00:30 04/06/17 01:10 50 MG Ondansetron HCl (Zofran Inj) 4 mg Q6H PRN IV NAUSEA AND/OR VOMITING 04/06/17 00:30 Famotidine 20 mg 20 mg BID IV 04/06/17 09:00 04/07/17 16:10 DC 04/07/17 08:48 20 MG Potassium Chloride (KCl 40 MEQ/250 ML NS) 250 ml @ 62.5 mls/hr ONCE ONCE IVPB 04/07/17 12:00 04/07/17 15:59 DC 04/07/17 11:58 62.5 MLS/HR Barium Sulfate (Readi-Cat 2 ( [employer] )) 900 ml [address]IOR TO CT ONCE PO 04/07/17 16:00 04/07/17 16:01 DC Amlodipine Besylate (Norvasc) 5 mg DAILY PO 04/07/17 16:00 04/08/17 08:55 5 MG Gemfibrozil (Lopid) 600 mg BID PO 04/07/17 21:00 04/07/17 21:00 DC Losartan Potassium (Cozaar) 100 mg DAILY PO 04/07/17 16:00 04/08/17 08:54 100 MG Thyroid ([place] Thyroid) 90 mg DAILY PO 04/07/17 17:00 04/08/17 08:49 90 MG Valacyclovir HCl (Valtrex) 1,000 mg BID PO 04/07/17 16:00 04/07/17 16:09 DC Miscellaneous Information 40 mg DAILY PO 04/07/17 16:00 04/07/17 16:07 DC Pregabalin (Lyrica) 75 mg BID PO 04/07/17 21:00 04/08/17 09:06 75 MG Pantoprazole (Protonix Iv) 40 mg BID@06,18 IV 04/07/17 18:00 04/08/17 05:19 40 MG Barium Sulfate (Volumen) 450 ml STK-MED ONCE PO 04/07/17 16:00 04/07/17 16:01 DC 04/07/17 16:00 450 ML Valacyclovir HCl (Valtrex) 1,000 mg BID PO 04/07/17 18:00 04/08/17 08:50 1,000 MG IV Flush 10 ml 10 ml STK-MED ONCE .ROUTE 04/07/17 17:20 04/07/17 17:21 DC 04/07/17 17:47 10 ML Sodium Chloride 100 ml @ ud STK-MED ONCE .ROUTE 04/07/17 17:20 04/07/17 17:21 DC 04/07/17 17:47 40 ML/SEC Iohexol (Omnipaque) 100 ml @ ud STK-MED ONCE .ROUTE 04/07/17 17:20 04/07/17 17:21 DC 04/07/17 17:48 100 ML/SEC Iohexol (Omnipaque 350mg/ ml) 50 ml STK-MED ONCE .ROUTE 04/07/17 17:20 04/07/17 17:21 DC 04/07/17 17:48 50 ML Potassium Chloride (Klor-Con 20) 40 meq ONCE STAT PO 04/08/17 11:55 04/08/17 12:00 DC 04/08/17 12:24 40 MEQ Sucralfate (Carafate) 1 gm QID PO 04/08/17 13:00 04/08/17 12:24 1 GM Gastrointestinal: pain Psychological: no complaints Additional Comments Would recommend use of local ointment of antifungal and cortisone, such as combination of Clotrimazole (1%) and and Betamethasone (0.05) . Past Medical History Medical History: other (gerd) Past Surgical History Past Surgical Hx: cholecystectomy Social History Smoking Status: Current every day smoker Exam/Review of Systems Vital Signs Vitals Vital Signs Date Time Temp Pulse Resp B/P Pulse Ox O2 Delivery O2 Flow Rate FiO2 04/08/17 08:14 98.0 64 18 109/80 98 04/05/17 23:40 Room Air Intake and Output 04/07/17 04/07/17 04/08/17 15:00 23:00 07:00 Intake Total 1190 ml 1680.0 ml Balance 1190 ml 1680.0 ml Results Result Diagram: 04/08/17 0511 04/08/17 0511 Results 24 hrs Laboratory Tests Test 04/07/17 20:00 04/08/17 05:11 Urine Color LT. YELLOW Urine Clarity CLEAR Urine pH 6.5 Urine Specific [place] <=1.005 L Urine Ketones NEGATIVE Urine Nitrite NEGATIVE Urine Bilirubin NEGATIVE Urine Urobilinogen 0.2 E.U./dL Urine Leukocyte Esterase NEGATIVE Urine Hemoglobin NEGATIVE Urine Glucose NEGATIVE Urine Total Protein NEGATIVE White Blood Count 4.8 # Red Blood Count 4.30 Hemoglobin 13.0 Hematocrit 37.8 Mean Corpuscular Volume 87.9 Mean Corpuscular Hemoglobin 30.2 Mean Corpuscular Hemoglobin Concent 34.4 Red Cell Distribution Width 14.6 H Platelet Count 228 Mean Platelet Volume 10.2 Neutrophils % 42.5 Lymphocytes % 42.6 Monocytes % 11.0 Eosinophils % 3.1 Basophils % 0.6 Nucleated Red Blood Cells % 0.0 Neutrophils # 2.1 Lymphocytes # 2.1 Monocytes # 0.5 Eosinophils # 0.2 Basophils # 0.0 Nucleated Red Blood Cells # 0.0 Sodium Level 140 Potassium Level 3.6 Chloride Level 110 Carbon Dioxide Level 26 Anion Gap 8 Blood Urea Nitrogen 4 L Creatinine 0.65 Glucose Level 97 Calcium Level 9.0 Magnesium Level 1.9 Total Bilirubin 0.2 Direct Bilirubin 0.00 Indirect Bilirubin 0.2 Aspartate Amino Transf (AST/SGOT) 97 H Alanine Aminotransferase (ALT/SGPT) 367 H Alkaline Phosphatase 140 H Total Protein 6.0 L Albumin 3.5 Thyroid Stimulating Hormone (TSH) 4.560 HIV (1&2) Antibody NEGATIVE Medications Medications Current Medications Dextrose/Sodium Chloride (D5-1/2ns) 1,000 ml @ 125 mls/hr Q8H IV Last administered on 04/08/17 06:35; Admin Dose 125 MLS/HR; Start 04/06/17 at 00:30 Morphine Sulfate (morphine) 4 mg Q4H PRN IV pain; Start 04/06/17 at 00:30 Ketorolac Tromethamine (Toradol) 30 mg Q6H PRN IV PAIN Last administered on 02:06; Admin Dose 30 MG; Start 04/06/17 at 00:30; Stop 04/09/17 at 00:29 Tramadol HCl (Ultram) 50 mg Q6H PRN PO pain Last administered on 5/28/17at 01: 10; Admin Dose 50 MG; Start 04/06/17 at 00:30 Ondansetron HCl (Zofran Inj) 4 mg Q6H PRN IV NAUSEA AND/OR VOMITING; Start at 00:30 Amlodipine Besylate (Norvasc) 5 mg DAILY PO Last administered on 04/08/17 08: 55; Admin Dose 5 MG; Start 04/07/17 at 16:00 Losartan Potassium (Cozaar) 100 mg DAILY PO Last administered on 04/08/17 08: 54; Admin Dose 100 MG; Start 04/07/17 at 16:00 Thyroid ([place] Thyroid) 90 mg DAILY PO Last administered on 04/08/17 08:49; Admin Dose 90 MG; Start 04/07/17 at 17:00 Pregabalin (Lyrica) 75 mg BID PO Last administered on 04/08/17 09:06; Admin Dose 75 MG; Start 04/07/17 at 21:00 Pantoprazole (Protonix Iv) 40 mg BID@06,18 IV Last administered on 04/08/17 05 :19; Admin Dose 40 MG; Start 04/07/17 at 18:00 Valacyclovir HCl (Valtrex) 1,000 mg BID PO Last administered on 04/08/17 08:50 ; Admin Dose 1,000 MG; Start 04/07/17 at 18:00 Sucralfate (Carafate) 1 gm QID PO Last administered on 04/08/17 12:24; Admin Dose 1 GM; Start 04/08/17 at 13:00 ANGEL WALLS MD April 08, 2017 16:13
[2017-04-08 20:15] VITALS: BP 134/84; RESP 18
[2017-04-08] MEDS: NYSTATIN/TRIAMCINOLONE 15 GM CR TOP SCH (21:05)
[2017-04-09] VITALS (10 sets, daily range): BP systolic 108–131; BP diastolic 55–80; PULSE 59–62; RESP 16–25
[2017-04-09] MEDS: DEXTROSE 5%-0.45% NACL 1,000 ML IV SCH ×5 (00:57→20:21)
[2017-04-09] MEDS ORDERED: ACETAMINOPHEN 325 MG TAB PO PRN (05:30)
[2017-04-09 05:36] LABS: ADD SCAN DIFF NO
[2017-04-09 05:46] LABS: BASOPHILS % 0.5 % (0.0-2.0); EOSINOPHILS # 0.2 10^3/ul (0.0-0.5); EOSINOPHILS % 3.1 % (0.0-7.0); HEMATOCRIT 36.8 % (37.0-47.0); LYMPHOCYTES # 1.9 10^3/ul (0.8-2.9); LYMPHOCYTES % 34.1 % (15.0-51.0); MEAN CORPUSCULAR HEMOGLOBIN 30.9 pg (29.0-33.0); MEAN CORPUSCULAR HGB CONC 35.3 g/dl (32.0-37.0); MEAN CORPUSCULAR VOLUME 87.4 fl (82.0-101.0); MEAN PLATELET VOLUME 10.3 fl (7.4-10.4); MONOCYTE # 0.6 10^3/ul (0.3-0.9); MONOCYTES % 9.9 % (0.0-11.0); NEUTROPHIL # 2.9 10^3/ul (1.6-7.5); NEUTROPHILS % 52.2 % (39.0-77.0); PLATELET COUNT 255 10^3/UL (140-415); RED BLOOD COUNT 4.21 10^6/ul (4.20-5.40); RED CELL DISTRIBUTION WIDTH 14.2 % (11.5-14.5); WHITE BLOOD COUNT 5.5 10^3/ul (4.8-10.8)
[2017-04-09] MEDS: PANTOPRAZOLE 40 MG INJ IV SCH ×2 (05:46→18:51)
[2017-04-09 06:11] LABS: POTASSIUM 3.7 mmol/L (3.5-5.1)
[2017-04-09 06:14] LABS: CALCIUM 9.2 mg/dl (8.4-10.2); CREATININE 0.75 mg/dl (0.44-1.00)
[2017-04-09] MEDS: NYSTATIN/TRIAMCINOLONE 15 GM CR TOP SCH ×2 (09:16→20:21)
[2017-04-09] MEDS: VALACYCLOVIR 500 MG TAB PO SCH ×2 (09:46→20:20)
[2017-04-09] MEDS: THYROID 30 MG TAB PO SCH (09:46)
[2017-04-09] MEDS: SUCRALFATE 1 GM TAB PO SCH ×5 (09:47→20:20)
[2017-04-09] MEDS: AMLODIPINE 5 MG TAB PO SCH (09:47)
[2017-04-09] MEDS: LOSARTAN 50 MG TAB PO SCH (09:47)
[2017-04-09] MEDS: PREGABALIN 75 MG CAP PO SCH ×2 (09:50→20:20)
[2017-04-09] MEDS ORDERED: NSTR15C TOP (10:28)
[2017-04-09] MEDS ORDERED: SUCR1TAB27 PO (10:28)
[2017-04-09] MEDS ORDERED: TRAM50TA2 PO (10:28)
[2017-04-09] MEDS ORDERED: VALA500T PO ×2 (10:28)
[2017-04-09] MEDS ORDERED: OMEP40CA6 PO (10:28)
[2017-04-09] MEDS ORDERED: LYR75 PO (10:28)
[2017-04-09 12:37] LABS: HSV 1 IGG ANTIBODY 35.5 index; HSV 2 IGG ANTIBODY 11.8 index
[2017-04-09] MEDS ORDERED: PROPOFOL 20 ML ONE (17:20)
[2017-04-09] MEDS ORDERED: LIDOCAINE 2% (SDV) 5 ML INJ ONE (17:20)
[2017-04-09] MEDS ORDERED: MIDAZOLAM 1 MG/ML 2 ML INJ ONE (17:21)
[2017-04-09] MEDS ORDERED: FAMOTIDINE 20 MG INJ ONE (17:21)
--- NOTE | 2017-04-09 18:44 | GILP ---
DATE OF PROCEDURE: 04/09/2017 PROCEDURE: Esophagogastroduodenoscopy with biopsies. BRIEF HISTORY AND INDICATIONS: The patient is being evaluated for abdominal pain, nausea and vomiti ng. PREMEDICATION: Monitored anesthesia care by anesthesiologist. SURGEON: Zen Degroot MD. INSTRUMENT USED: Olympus panendoscope. TECHNIQUE: After informed consent, with the patient/relatives understanding the procedure, its indic ations, potential risks and complications, including but not limited to: allergic reaction, bleeding , perforation or infection, and after all pertinent questions were answered to the patients satisfac tion, the patient/relatives signed witnessed informed consent. Following this, premedication was administered slowly IV push under careful cardiovascular and respi ratory monitoring with pulse oximetry, automatic blood pressure and playground monitor. Once the sedative effect was achieved the patient was place in the left lateral decubitus, the panen doscope was introduced and advanced under visual control. Careful examination of the upper gastrointestinal tract, both on insertion as well as withdrawal of the instrument disclosed the following findings: ESOPHAGUS: The distal esophagus shows erythema and edema of the mucosa of a moderate degree. STOMACH: Upon entrance to the stomach, air was insufflated, the gastric davila distended normally. There is erythema and edema of the mucosa of a moderate degree. Biopsies were obtained to rule out H. pylori infection. There is a 10 mm antral gastric nodularity which was biopsied. PYLORUS: The pylorus appears patent and within normal limits, with no evidence of gastric outlet obs truction. DUODENUM: The duodenal mucosa was carefully examined in the duodenal bulb as well as the second port ion of the duodenum and appears unremarkable with no evidence of duodenitis, ulcer or neoplasm. The instrument was then withdrawn, the patient tolerated the procedure well and was transfer out of the endoscopy suite awake, and in good condition to continue recovery under observation IMPRESSION: 1. Moderate esophagitis. 2. Moderate gastritis, rule out Helicobacter pylori infection, biopsies obtained. 3. A 10 mm antral gastric nodule and biopsies obtained. PLAN: The patient will be treated with proton pump inhibitor and Carafate. Pathology will be revie wed as soon as available. Further recommendation will depend on the patient's clinical course as we ll as review of biopsies. Dictated By: ZEN DEGROOT MS/ILANA Conf#: [id number] DID#: [id number]
[2017-04-10] MEDS: PANTOPRAZOLE 40 MG INJ IV SCH (05:22)
[2017-04-10] MEDS: DEXTROSE 5%-0.45% NACL 1,000 ML IV SCH (05:22)
[2017-04-10 07:34] LABS: ADD SCAN DIFF NO
[2017-04-10 07:42] LABS: BASOPHILS % 0.4 % (0.0-2.0); EOSINOPHILS # 0.2 10^3/ul (0.0-0.5); EOSINOPHILS % 2.2 % (0.0-7.0); HEMATOCRIT 38.3 % (37.0-47.0); HEMOGLOBIN 13.4 g/dl (12.0-16.0); LYMPHOCYTES % 27.4 % (15.0-51.0); MEAN CORPUSCULAR HEMOGLOBIN 30.6 pg (29.0-33.0); MEAN CORPUSCULAR VOLUME 87.4 fl (82.0-101.0); MONOCYTE # 0.6 10^3/ul (0.3-0.9); MONOCYTES % 8.9 % (0.0-11.0); NEUTROPHIL # 4.3 10^3/ul (1.6-7.5); NEUTROPHILS % 60.7 % (39.0-77.0); PLATELET COUNT 287 10^3/UL (140-415); RED BLOOD COUNT 4.38 10^6/ul (4.20-5.40); WHITE BLOOD COUNT 7.2 10^3/ul (4.8-10.8)
[2017-04-10 08:02] VITALS: BP 134/83; RESP 18
[2017-04-10 08:07] LABS: CALCIUM 9.3 mg/dl (8.4-10.2); CREATININE 0.72 mg/dl (0.44-1.00); POTASSIUM 3.8 mmol/L (3.5-5.1)
[2017-04-10] MEDS: VALACYCLOVIR 500 MG TAB PO SCH (09:21)
[2017-04-10] MEDS: SUCRALFATE 1 GM TAB PO SCH ×2 (09:21→13:46)
[2017-04-10] MEDS: THYROID 30 MG TAB PO SCH (09:21)
[2017-04-10] MEDS: AMLODIPINE 5 MG TAB PO SCH (09:22)
[2017-04-10] MEDS: LOSARTAN 50 MG TAB PO SCH (09:22)
[2017-04-10] MEDS: PREGABALIN 75 MG CAP PO SCH (09:23)
[2017-04-10] MEDS: NYSTATIN/TRIAMCINOLONE 15 GM CR TOP SCH (09:25)
--- NOTE | 2017-04-10 09:40 | EN ---
Date/Time of Note Date/Time of Note DATE: 04/10/17 TIME: 09:39 Event Note Medicine Medicine Event Note PROGRESS NOTE DATE OF SERVICE: 04/09/17 SUBJECTIVE: Patient is getting colonoscopy today and wants to be discharged after that. OBJECTIVE: Vital signs: temperature 98.0 pulse 64 respirations 18 blood pressure 109/80 saturations 98% on room air Constitutional: alert, oriented 3, no distress, ambulance in the hallway Respiratory: clear to auscultation Cardiovascular: regular rate and rhythm Gastrointestinal: soft, tender, No distended Musculoskeletal: nl extremities to inspection Genitourinary - Female: other (Patient has normal adnexa however she does have erythema around her labia and rectal areas. Erythema does not extend to upper thighs. No blister us lesions. More of a macular rash.) Skin: Vitiligo LABS AND IMAGIN. CBC grossly unremarkable 2. Chemistry: Transaminitis improving without hyperbilirubinemia, BMP also grossly unremarkable. 3. HSV serology positive 4. CT of the abdomen concerning for possible fibroids otherwise unremarkable, with no abnormality noted in the pancreas or liver. ASSESSMENT: 1. Epigastric abdominal pain with bloating, nausea vomiting, and distention: Resolved * Patient is planned for upper endoscopy today. * Patient symptomatology concerning for acid reflux and possible gastritis. 2. Vaginal burning and pain for the last 1 year with history of herpes genitalia on valacyclovir likely secondary to postherpetic neuralgia * Sounds like patient has been treated extensively for Nathaly with no improvement and even with hormonal therapy with no improvement as well. * Status post gynecology review, appreciate input. Patient started on topical antifungal and steroid. 3. Hypertension: Controlled 4. Dyslipidemia on gemfibrozil which could be causing her transaminitis * Gemfibrozil on hold, and replaced with fish oil 5. Hypothyroidism on Synthroid 6. Hypokalemia: Resolved 7. Mild hyponatremia: Resolved 8. Abnormal pancreatic density on ultrasound: No density on CT. Plan: * Patient can be discharged after endoscopy if cleared by GI and if clinically stable * Will prepare discharge paperwork. * Further interventions per clinical course * Plan of care has been discussed with patient questions answered. DIONI ALEXANDER Apr 10, 2017 09:40
[2017-04-10] MEDS ORDERED: OMEG-135 PO (09:49)
--- NOTE | 2017-04-10 09:55 | PDOCDIS ---
Discharge Instructions DIAGNOSIS Discharge Diagnosis: Gastritis / esophagitis / Herpes Neuralgia CONDITION Patient Condition: Stable HOME CARE INSTRUCTIONS: Special Diet: LOW CHOLESTEROL, LOW FAT ACTIVITY: Activity Restrictions: Slowly Increase Activity Rest between Activity FOLLOW UP/APPOINTMENTS Appointments Followup with your primary doctor within the next 1-2 weeks. If you don't have one please let someone know, we can give you resources that may help you pick one. You may call Dr Gavino Flynn's office. he's accepting new patients Name, Degree: Gavino Flynn MD Specialty: Internal Medicine Comments: Office Address: [address] [place] [address] Office Office You may also call your insurance company to assign one to you. Review your medication list with your nurse before leaving and if you need new prescriptions please let your nurse know. I may have made changes to your home medications or given you new prescriptions , please let your primary doctor know as well. Stay compliant with your medications and report any side effects to your PCP or pharmacist. Return to the ER if you have any concerns and cannot reach your doctors or call your insurance company, they usually have a nurse that can help you. REFERRALS Other Referrals You may also follow-up with the social media manager for your GI issues Name, Degree: Johnna Degroot MD Specialty: Gastroenterology Comments: Office Address: [address] [place] [address] Office Office DIONI ALEXANDER Apr 10, 2017 09:54
[2017-04-10] MEDS ORDERED: GABA300C16 PO (09:57)
--- NOTE | 2017-04-10 10:14 | DS ---
Date/Time of Note Date/Time of Note DATE: 04/10/17 TIME: 09:58 Discharge Summary Admission/Discharge Info Admit Date/Time April 05, 2017 at 23:53 Discharge Date/Time April 10, 2017. . Final Diagnosis 1. Abdominal pain and bloating secondary to moderate esophagitis and gastritis : Improved and on treatment 2. Incidental finding of 10 mm gastric nodule on endoscopy status post biopsy with pathology results pending 3. Severe and debilitating vulvar and vagina pain and burning likely secondary to postherpetic neuralgia started on therapy 4. Vulvar rash secondary to Nathaly infection resistant to therapy 5. 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 Probable noncompliance to therapy 7. Incidental finding of uterine fibroids: asymptomatic 8. Transaminitis likely chronic, thought to be secondary to gemfibrozil use: stable 9. Dyslipidemia now with low HDL only: started on fish oil . Patient Condition: Stable Consults * Gastroenterology: [facility] * Gynecology: [facility] . Hospital Course 51 year old female who was admitted for abdominal pain and bloating and elevated transaminase levels and was thought to have a probable pancreatitis. However she did have a pancreatitis, but the ultrasound was concerning for a possible pancreatic density which was found to be nothing on CAT scan. While she was hospitalized she had multiple issues that were addressed. 1. Abdominal pain associated with burning sensation in the throat and in the mouth with bloating and intermittent nausea and loss of appetite.These symptoms were concerning for gastritis versus peptic ulcer disease and as such gastroenterology consultation was obtained after the patient has been worked up for gallbladder and pancreatic pathology and those found to be negative and then she underwent an upper endoscopy for the second time. Her first was back in 2016. These continue to show a moderate esophagitis as well as gastritis and she was also found to have a 10 mm antral gastric nodule. Multiple biopsies were obtained and GI recommendations were that patient be treated with PPI therapy and Carafate I will follow pathology results. Of note is that the patient was supposed to have been on PPI therapy, but she felt that was insufficient and so she stopped taking it thinking further interventions elsewhere. She has been counseled extensively at this time that this is the regimen that will heal her gastritis and she needs to be compliant with it. She does see Dr. Degroot as outpatient, and will follow up with his office for pathology results. 2. Severe vulvar L and vagina now pain and burning associated with the macula mild erythema pus rash on the vulva. The patient was on valacyclovir therapy prior to hospitalization for HSV suppression therapy, but she was skeptical of the diagnosis because she says she has never had breakouts in the past. HSV PCR was done that came back showing elevated HSV antibody levels consistent with a history of prior HSV infection, and because of her symptomatology she was put back on treatment doses of valacyclovir for 10-14 days, and the source of her chronic pain and burning that has been going on for the last 1 year is likely associated with herpes neuralgia. She was also seen by gynecology who felt that the acute rash on her vulva was not due to herpes but due to probable Nathaly, and because she had failed multiple Nathaly conventional treatment, and the recommendation was to treat with topical antifungal in addition to steroids. She has been commenced on this regimen. They however agreed with the treatment of neuralgia. She is to follow-up with her own contemporary or modern dancer as outpatient for further treatment. The patient was started on Lyrica for postherpetic neuralgia, and she reported improvement in her symptoms with this. She tells me she was tried on gabapentin in the past and she had no relief with this regimen. At this time case management is assisting and working on getting authorization for Lyrica therapy. 3. Regarding her transaminitis, her liver enzymes remained stable throughout her hospitalization and even improved slightly at the time of discharge. Her imaging was not consistent with obvious fatty liver, but she was ruled out for hepatitis. Hence it was thought that her transaminitis may be secondary to gemfibrozil use, and since has serum triglycerides levels were normal and she only had a low HDL, high gemfibrozil was stopped, she was asked to maintain a low-cholesterol low-fat diet and she was also supplemented with fish oil therapy to improve HDL. She is also recommended to follow-up with her primary care physician for repeat lipid profile in a few months. The patient also had multiple comorbidities that remains stable: Managed as per medical records. She has somewhat complex medical issues, and tends to report that she has not been updated on the plan of care or what is going on with her. She seems to understand when you explain but then not too long after reports that no one has explained what is going on with her. I am not sure if she is manipulative because she does not want to accept the reality of her conditions and keeps hoping each physician will tell her something different, or she truly does not understand. I however suspect is the latter. I have encouraged her to stay in close contact with her primary care physician and specialists. She has the contact information. In my opinion she is stable for discharge at this time for further outpatient follow-up. . Home Meds Active Scripts Gabapentin* (Gabapentin*) 300 Mg Capsule, 300 MG PO TID, #90 CAP 2 Refills 1. Use only if your insurance will not pay for Lyrica 2. Gradually increase dose by taking 1 tablet daily at bedtime for 2-3 days, then increase to 2 tablets daily for another 2-3 days, then increase to recommended dose 3 times daily. Prov:DIONI ALEXANDER 04/10/17 [place]-3 Fatty Acids/Fish Oil (Fish Oil 1,000 mg Capsule) 1 Each Capsule, 1 EACH PO BID for 30 Days, CAP 2 Refills Prov:DIONI ALEXANDER Cameron 04/10/17 Nystatin-Tramcinolone* (Mycolog*) 15 Grams Cr, 1 APPLIC TOP BID for 7 Days Prov:DIONI ALEXANDER 04/09/17 Sucralfate (Carafate) 1 Gm Tablet, 1 GM PO QID for 30 Days, TAB Prov:CATHERINEDIONI Cameron 04/09/17 Tramadol HCl (Tramadol HCl) 50 Mg Tablet, 50 MG PO Q6H Y for pain, #60 TAB Prov:CATHERINEDIONI . 04/09/17 Pregabalin* (Lyrica*) 75 Mg Capsule, 75 MG PO BID for 30 Days, CAP 3 Refills Prov:DIONI ALEXANDER 04/09/17 Valacyclovir Hcl* (Valacyclovir Hcl*) 500 Mg Tablet, 1000 MG PO BID for 8 Days, TAB Prov:CATHERINEDIONI 04/09/17 Valacyclovir Hcl* (Valacyclovir Hcl*) 500 Mg Tablet, 500 MG PO DAILY for 30 Days , TAB 2 Refills resume April 15 2017 Prov:DIONI ALEXANDER 04/09/17 Omeprazole* (Omeprazole*) 40 Mg Capsule.dr, 40 MG PO BID for 30 Days, CAP Prov:DIONI ALEXANDER 5/31/17 Reported Medications Thyroid* ([place] Thyroid*) 90 Mg Tablet, 90 MG PO DAILY, TAB 03/18/17 Gemfibrozil* (Gemfibrozil*) 600 Mg Tablet, 600 MG PO BID, TAB 03/18/17 Amlodipine Besylate* (Norvasc*) 5 Mg Tablet, 5 MG PO DAILY, TAB 03/18/17 Losartan Potassium* (Losartan Potassium*) 100 Mg Tablet, 100 MG PO DAILY, TAB 05/24/15 Primary Care Provider Not On Staff Doctor Time spent on discharge: > 30 minutes Pending Labs Laboratory Tests Test 04/10/17 07:11 White Blood Count 7.210^3/ul (4.8-10.8) Red Blood Count 4.3810^6/ul (4.20-5.40) Hemoglobin 13.4g/dl (12.0-16.0) Hematocrit 38.3% (37.0-47.0) Mean Corpuscular Volume 87.4fl (82.0-101.0) Mean Corpuscular Hemoglobin 30.6pg (29.0-33.0) Mean Corpuscular Hemoglobin Concent 35.0g/dl (32.0-37.0) Red Cell Distribution Width 14.0% (11.5-14.5) Platelet Count 17463^3/UL (140-415) Mean Platelet Volume 10.0fl (7.4-10.4) Neutrophils % 60.7% (39.0-77.0) Lymphocytes % 27.4% (15.0-51.0) Monocytes % 8.9% (0.0-11.0) Eosinophils % 2.2% (0.0-7.0) Basophils % 0.4% (0.0-2.0) Nucleated Red Blood Cells % 0.0/100WBC (0.0-0.0) Neutrophils # 4.310^3/ul (1.6-7.5) Lymphocytes # 2.010^3/ul (0.8-2.9) Monocytes # 0.610^3/ul (0.3-0.9) Eosinophils # 0.210^3/ul (0.0-0.5) Basophils # 0.010^3/ul (0.0-0.1) Nucleated Red Blood Cells # 0.010^3/ul (0.0-0.0) Sodium Level 139mmol/L (135-144) Potassium Level 3.8mmol/L (3.5-5.1) Chloride Level 107mmol/L (97-110) Carbon Dioxide Level 27mmol/L (21-31) Anion Gap 9 (8-16) Blood Urea Nitrogen 7mg/dl (7-20) Creatinine 0.72mg/dl (0.44-1.00) Glucose Level 96mg/dl (70-220) Calcium Level 9.3mg/dl (8.4-10.2) DIONI ALEXANDER Apr 10, 2017 10:08
--- NOTE | 2017-04-10 13:04 | PN ---
Date/Time of Note Date/Time of Note DATE: 04/10/17 TIME: 12:59 Assessment/Plan VTE Prophylaxis VTE Prophylaxis Intervention: ambulation Lines/Catheters IV [facility] Peripheral IV Urinary Cath still in place: No Assessment/Plan Assessment/Plan Assessment * Esophagitis moderate * Gastritis moderate Plan * Stable for outpatient management * PPI for 2 weeks Subjective 24 Hr Interval Summary Free Text/Dictation * Course reviewed with RN * patient seen and examined * EGD Moderate esophagitis. . Moderate gastritis, rule out Helicobacter pylori infection, biopsies obtained. . A 10 mm antral gastric nodule and biopsies obtained. * Biopsies A-Gastric biopsy: -- Reactive gastropathy and patchy mild chronic gastritis involving antral mucosa. -- No Helicobacter pylori organisms are identified in a Giemsa (positive control concurrently reviewed). -- There is no evidence of malignancy. B-Gastric body/antrum biopsy: -- Chronic gastritis, mild and patchy, involving antral mucosa. -- No Helicobacter pylori organisms are identified in a Giemsa stain (positive control concurrently reviewed). -- There is no evidence of malignancy. Exam/Review of Systems Vital Signs Vitals Vital Signs Date Time Temp Pulse Resp B/P Pulse Ox O2 Delivery O2 Flow Rate FiO2 04/10/17 08:02 98.3 70 18 134/83 99 04/09/17 18:26 Room Air Intake and Output 04/09/17 04/09/17 04/10/17 15:00 23:00 07:00 Intake Total 500 ml 1250 ml 1500 ml Balance 500 ml 1250 ml 1500 ml Exam Constitutional: alert Head: normocephalic Neck: supple Respiratory: clear to auscultation, normal air movement Cardiovascular: nl pulses, regular rate and rhythm Gastrointestinal: nl liver, spleen, non-tender, soft Musculoskeletal: nl extremities to inspection Extremities: normal pulses Results Result Diagram: 04/10/17 0711 04/10/17 0711 Results 24 hrs Laboratory Tests Test 04/10/17 07:11 White Blood Count 7.2 # Red Blood Count 4.38 Hemoglobin 13.4 Hematocrit 38.3 Mean Corpuscular Volume 87.4 Mean Corpuscular Hemoglobin 30.6 Mean Corpuscular Hemoglobin Concent 35.0 Red Cell Distribution Width 14.0 Platelet Count 287 Mean Platelet Volume 10.0 Neutrophils % 60.7 Lymphocytes % 27.4 Monocytes % 8.9 Eosinophils % 2.2 Basophils % 0.4 Nucleated Red Blood Cells % 0.0 Neutrophils # 4.3 Lymphocytes # 2.0 Monocytes # 0.6 Eosinophils # 0.2 Basophils # 0.0 Nucleated Red Blood Cells # 0.0 Sodium Level 139 Potassium Level 3.8 Chloride Level 107 Carbon Dioxide Level 27 Anion Gap 9 Blood Urea Nitrogen 7 Creatinine 0.72 Glucose Level 96 Calcium Level 9.3 Medications Medications Current Medications Dextrose/Sodium Chloride (D5-1/2ns) 1,000 ml @ 125 mls/hr Q8H IV Last administered on 04/10/17 05:22; Admin Dose 125 MLS/HR; Start 04/06/17 at 00:30 Morphine Sulfate (morphine) 4 mg Q4H PRN IV pain; Start 04/06/17 at 00:30 Tramadol HCl (Ultram) 50 mg Q6H PRN PO pain Last administered on 04/06/17 01: 10; Admin Dose 50 MG; Start 04/06/17 at 00:30 Ondansetron HCl (Zofran Inj) 4 mg Q6H PRN IV NAUSEA AND/OR VOMITING; Start at 00:30 Amlodipine Besylate (Norvasc) 5 mg DAILY PO Last administered on 04/10/17 09:22 ; Admin Dose 5 MG; Start 04/07/17 at 16:00 Losartan Potassium (Cozaar) 100 mg DAILY PO Last administered on 04/10/17 09:22 ; Admin Dose 100 MG; Start 04/07/17 at 16:00 Thyroid ([place] Thyroid) 90 mg DAILY PO Last administered on 04/10/17 09:21; Admin Dose 90 MG; Start 04/07/17 at 17:00 Pregabalin (Lyrica) 75 mg BID PO Last administered on 04/10/17 09:23; Admin Dose 75 MG; Start 04/07/17 at 21:00 Pantoprazole (Protonix Iv) 40 mg BID@06,18 IV Last administered on 04/10/17 05: 22; Admin Dose 40 MG; Start 04/07/17 at 18:00 Valacyclovir HCl (Valtrex) 1,000 mg BID PO Last administered on 04/10/17 09:21 ; Admin Dose 1,000 MG; Start 04/07/17 at 18:00 Sucralfate (Carafate) 1 gm QID PO Last administered on 04/10/17 09:21; Admin Dose 1 GM; Start 04/08/17 at 13:00 Nystatin/ Triamcinolone Acetonide (Mycolog Cr) 1 applic BID TOP Last administered on 04/10/17 09:25; Admin Dose 1 APPLIC; Start 04/08/17 at 21:00 Acetaminophen (Tylenol Tab) 650 mg Q6H PRN PO PAIN AND OR ELEVATED TEMP Last administered on 04/09/17 05:45; Admin Dose 650 MG; Start 04/09/17 at 05:30 ZEN PARKER MD Apr 10, 2017 13:04
== END 2017-04-10 14:30 | disposition home or self-care (01) | DRG 392 ==
LOC: MS2 23:53
PROVIDERS: ADMIT Internal Medicine; ATTEND Internal Medicine
PROC: 0DB68ZX Excision of Stomach, Via Natural or Artificial Opening Endoscopic, Diagnostic (ICD-10-PCS; principal; 2017-04-09 18:30)
DX: K20.9 Esophagitis, unspecified (principal); E87.1 Hypo-osmolality and hyponatremia; I10 Essential (primary) hypertension; K29.70 Gastritis, unspecified, without bleeding; K21.9 Gastro-esophageal reflux disease without esophagitis; K31.89 Other diseases of stomach and duodenum; D25.9 Leiomyoma of uterus, unspecified; R14.0 Abdominal distension (gaseous); R74.0 Nonspecific elevation of levels of transaminase and lactic acid dehydrogenase [LDH]; E78.5 Hyperlipidemia, unspecified; R21 Rash and other nonspecific skin eruption; E03.9 Hypothyroidism, unspecified; R20.8 Other disturbances of skin sensation; Z87.891 Personal history of nicotine dependence
CPT/HCPCS: 74177; 76705; 80048; 80053; 80061; 80076; 81003; 82150; 83036; 83690; 83735; 84100; 84443; 84702; 85025; 86692; 86703; 86704; 86709; 86803; 87340; 88305; 88312; C9113; J1885; J2250; J3480; J7042; Q9967

== ENCOUNTER 2017-06-30 11:13 | Day surgery (SDC) | payer OTHER ==
[~2017-06-30] VITALS: Ht 167.6 cm; Wt 80.0 kg
[~2017-06-30 11:13] MED LIST changes: +GABA300C16 PO; +LYR75 PO; +NSTR15C TOP; +OMEG-135 PO; +SUCR1TAB27 PO; +TRAM50TA2 PO
[2017-06-30 12:24] VITALS: Ht 167.6 cm; Wt 80.0 kg
[2017-06-30 12:49] VITALS: BP 120/65; PULSE 69; RESP 18
[2017-06-30] MEDS ORDERED: FLUO120C4 TOP (12:52)
[2017-06-30] MEDS ORDERED: PROPOFOL 40 ML ONE (15:10)
[2017-06-30] MEDS ORDERED: LIDOCAINE 2% (SDV) 5 ML INJ ONE (15:10)
--- NOTE | 2017-06-30 15:35 | OPPN ---
Date/Time of Note Date/Time of Note DATE: 06/30/17 TIME: 15:31 Proc Note GI Free Text/Dictation Procedure Date: 06/30/2017 Preoperative Diagnosis: Constipation Postoperative Diagnosis: * Moderate-sized internal hemorrhoids * Otherwise normal colonoscopy to cecum Plan: * High-fiber diet * MiraLAX 17 g daily * If constipation persists consider Linzess or Amitiza * Conservative management of hemorrhoidal disease Procedure Performed: Colonoscopy Surgeon: Zen Degroot MD Career Services Officer: None Second Compounding Scaler: None Anesthesia/Sedation MAC/Dr. Workman Tourniquet Time: NA Estimated Blood Loss: None Transfusion Required: No Specimens: None Grafts/Implants: None Tubes/Drains: NA Complications: None Pt. Condition Post Procedure: Stable Disposition: Home After informed consent, with the patient/relatives understanding the procedure, its indications and potential risks and complications, including but not limited to: Allergic reaction, bleeding, perforation, infection, and after all pertinent questions were answered to the patient's satisfaction, the patient/ relatives signed the witnessed informed consent. Following this, premedication was administered slowly IV push under careful cardiovascular and respiratory monitoring with pulse OXIMETRY, automatic blood pressure, and compliance monitor. Once the sedative effect was achieved, the patient was placed in the left lateral decubitus position, digital rectal examination was performed. A colonoscope was then introduced and advanced under visual control throughout all segments of the colon including: [the rectum, sigmoid, descending colon, splenic flexure, transverse colon, hepatic flexure, ascending colon and finally reaching the cecum which was clearly identified by transillumination, finger indentation and the ileocecal valve.] Careful examination of the mucosa of the lower gastrointestinal tract both on insertion as well as withdrawal of the instrument disclosed the following findings: Preparation quality: [Adequate], Rectal Examination: The anorectal area was visualized examined and digital rectal examination performed with the following findings: There is mild erythema in the perianal area. Otherwise no evidence of perirectal disease, no masses.] Colonic mucosa: The mucosa of all segments of the colon was carefully examined and showed the following findings: [the examined mucosa appears within normal limits. There is no evidence of inflammatory changes, diverticular formation, polyps or other neoplasms, vascular malformation, or any other abnormality.] Moderate-sized internal hemorrhoids are present The instrument was then withdrawn, the patient tolerated the procedure well and was transferred out of the Endoscopy Suite awake and in good condition to continue recovery under observation. Procedure date: Jun 30, 2017 ZEN DEGROOT MD Jun 30, 2017 15:35
[2017-06-30 15:55] VITALS: BP 128/61; RESP 16
[2017-06-30 16:00] VITALS: BP 113/73; RESP 20
== END 2017-06-30 17:02 | disposition home or self-care (01) ==
LOC: GIL 11:13
PROVIDERS: ATTEND Internal Medicine Gastroenterology
DX: K59.00 Constipation, unspecified (principal); K64.8 Other hemorrhoids; I10 Essential (primary) hypertension; E03.9 Hypothyroidism, unspecified; E66.9 Obesity, unspecified; Z68.28 Body mass index [BMI] 28.0-28.9, adult
CPT/HCPCS: 45378; 84703; Z7610

== ENCOUNTER 2018-02-26 11:25 | Emergency (ER) | END 2018-02-26 14:57 | disposition home or self-care (01) ==

== ENCOUNTER 2018-02-28 10:35 | Emergency (ER) | END 2018-02-28 11:45 | disposition home or self-care (01) ==

== ENCOUNTER 2018-05-18 08:37 | Day surgery (SDC) | END 2018-05-18 17:25 | disposition home or self-care (01) ==

== ENCOUNTER 2019-01-05 11:19 | Day surgery (SDC) | payer OTHER ==
[~2019-01-05] VITALS: Ht 167.6 cm; Wt 85.1 kg
[2019-01-05] VITALS (13 sets, daily range): BP systolic 101–123; BP diastolic 59–88; PULSE 74–84; RESP 11–25; Ht 167.6 cm; Wt 85.1 kg
[~2019-01-05 11:19] MED LIST changes: +DICL75TA2 PO; -GABA300C16 PO; -GEMF600T60 PO; +LOSA100T15 PO; -LOSA100T7 PO; -LYR75 PO; -NSTR15C TOP; -OMEG-135 PO; -SUCR1TAB27 PO; -TRAM50TA2 PO
[2019-01-05] MEDS ORDERED: PANT40TA3 PO (12:12)
[2019-01-05] MEDS ORDERED: METHYLPREDNISOLONE ACET 80 MG/ML 1 ML ONE (12:54)
[2019-01-05] MEDS ORDERED: LIDOCAINE 1% (MPF) 30 ML INJ ONE (12:54)
--- NOTE | 2019-01-05 13:00 | HPN ---
Date/Time of Note Date/Time of Note DATE: 01/05/19 TIME: 13:00 KATIE GRANADOS MD Jan 05, 2019 13:00
--- NOTE | 2019-01-05 13:03 | OPR ---
Date/Time of Note Date/Time of Note DATE: 01/05/19 TIME: 13:01 Operative Report Preoperative Diagnosis lumbar spinal stenosis Postoperative Diagnosis same Operation/Procedure Performed lumbar epidural steroid injection Surgeon see signature line Construction Equipment Mechanic none Anesthesia Type: MAC Estimated Blood Loss: minimal Transfusion none Specimen none Grafts/Implants none Complications none Procedure Description lumbar epidural steroid injection KATIE GRANADOS MD Jan 05, 2019 13:03
--- NOTE | 2019-01-05 13:09 | PREAC ---
Date/Time of Note Date/Time of Note DATE: 01/05/19 TIME: 13:09 Anesthesia Eval and Record Evaluation Time Pre-Procedure Interview DATE: 01/05/19 TIME: 13:09 Age 53 Sex female NPO: 8 hrs Preoperative diagnosis Low bach pain Planned procedure Lumbar epidural injection Past Medical History Past Medical History: Includes Cardio: HTN Endo: Hypothyroid Neuro: Other (Brain aneurysm s/p craniotomy) GI: GERD Surgery & Anesthesia Issues No known issue Meds Anticoagulation: No Beta Roderick within 24 hr: No Reason Beta Roderick not given: Pt. not on B-Roderick Reported Medications Pantoprazole* (Protonix*) 40 Mg Tablet.dr, 40 MG PO DAILY, TAB 01/05/19 Valacyclovir Hcl* (Valacyclovir Hcl*) 500 Mg Tablet, 500 MG PO DAILY, TAB 05/18/18 Losartan Potassium* (Losartan Potassium*) 100 Mg Tablet, 100 MG PO DAILY, TAB 05/18/18 Amlodipine Besylate* (Norvasc*) 5 Mg Tablet, 5 MG PO DAILY, TAB 05/18/18 Discontinued Reported Medications Thyroid* ([place] Thyroid*) 90 Mg Tablet, 90 MG PO DAILY, TAB 05/18/18 Omeprazole* (Omeprazole*) 40 Mg Capsule.dr, 40 MG PO DAILY, #30 CAP 05/18/18 Diclofenac Sodium* (Diclofenac Sodium*) 75 Mg Tablet.dr, 75 MG PO BID PRN for PAIN AND/OR INFLAMMATION, #60 TAB 05/18/18 Meds reviewed: Yes Allergies Coded Allergies: No Known Allergy (Unverified , 01/05/19) Allergies Reviewed: Yes Labs/Studies Labs Reviewed: Reviewed by anesthesiologist test: Negative Pre-procedure Exam Last vitals Vital Signs Date Temp Pulse Resp B/P (MAP) Pulse Ox O2 O2 Flow FiO2 Time Delivery Rate 01/05/19 97.6 76 16 118/73 97 Room Air 12:31 (88) Airway: Adequate mouth opening Mallampati: Mallampati II Teeth: Normal Lung: Normal Heart: Normal ASA Physical Status ASA physical status: 2 Emergency: None Planned Anesthetic General/MAC: MAC Planned Pain Management Parenteral pain med Pre-operative Attestations Prior to commencing anesthesia and surgery, the patient was re-evaluated, there was verification of: *The patient's identity *The results of appropriate recent lab work and preoperative vital signs *The above evaluation not changing prior to induction *Anesthetic plan, risk benefits, alternative and complications discussed with patient/family; questions answered; patient/family understands, accepts and wishes to proceed. AMY MIXON MD Jan 05, 2019 13:09
[2019-01-05] MEDS ORDERED: PROPOFOL 20 ML ONE (13:22)
[2019-01-05] MEDS ORDERED: HYDROmorphONE 1 MG/5 ML IV SYRINGE IV ONE (13:46)
[2019-01-05] MEDS ORDERED: ONDANSETRON 4 MG INJ ONE (13:46)
[2019-01-05] MEDS ORDERED: HYDROmorphONE 1 MG/5 ML IV SYRINGE IV PRN ×3 (14:00)
[2019-01-05] MEDS ORDERED: MIDAZOLAM 1 MG/ML 2 ML INJ IV PRN (14:00)
[2019-01-05] MEDS ORDERED: FENTAnyl 50 MCG/ML VIAL IV PRN ×3 (14:00)
[2019-01-05] MEDS ORDERED: DIPHENHYDRAMINE 50 MG INJ IV PRN (14:00)
[2019-01-05] MEDS ORDERED: ONDANSETRON 4 MG INJ IV PRN (14:00)
[2019-01-05] MEDS ORDERED: MEPERIDINE 25 MG INJ IV PRN (14:00)
[2019-01-05] MEDS ORDERED: OXYCODONE/ACETAMINOPHEN (5/325) TAB PO PRN ×2 (14:00)
[2019-01-05] MEDS ORDERED: METOCLOPRAMIDE 10 MG INJ IV PRN (14:00)
--- NOTE | 2019-01-05 14:42 | PAC ---
Date/Time of Note Date/Time of Note DATE: 01/05/19 TIME: 14:41 Post-Anesthesia Notes Post-Anesthesia Note Last documented vital signs Vital Signs Date Temp Pulse Resp B/P (MAP) Pulse Ox O2 O2 Flow FiO2 Time Delivery Rate 01/05/19 98.7 14:23 01/05/19 82 25 117/78 99 Room Air 14:16 (91) Activity: WNL Respiratory function: WNL Cardiovascular function: WNL Mental status: Baseline Pain reasonably controlled: Yes Hydration appropriate: Yes Nausea/Vomiting absent: Yes AMY MIXON MD Jan 05, 2019 14:41
--- NOTE | 2019-01-05 21:06 | OPR ---
DATE OF OPERATION: 01/05/2019 SURGEON: Katie Granados MD ANESTHESIA: MAC. PREOPERATIVE DIAGNOSES: 1. Spinal stenosis. 2. Disk protrusion. 3. Radiculopathy. 4. Sciatica. POSTOPERATIVE DIAGNOSES: 1. Spinal stenosis. 2. Disk protrusion. 3. Radiculopathy. 4. Sciatica. PROCEDURES PERFORMED: 1. Lumbar epidural steroid injection. 2. Interpretation of intraoperative fluoroscopic x-ray. ESTIMATED BLOOD LOSS: None. COMPLICATIONS: None. PROCEDURE: The patient was taken to the operating room and placed in the left lateral decubitus posi tion. Intravenous sedation provided by anesthesia. C-arm brought over the lumbar spine. Back prepp ed with ChloraPrep. A 22-gauge 3-1/2 inch spinal needle introduced using loss of resistance techniqu e. No CSF or blood aspirated. An 80 mg Depo-Medrol and 1 of 1% Xylocaine injected without complicat ions. X-ray was used for localization. The patient tolerated the procedure well. Anesthetic revers ed and taken to the recovery room in stable condition. Dictated By: KATIE ELIZABETH/ILANA Conf#: [id number] DID#: [id number] CC: CHINEDU GUILLORY MD; KATIE GRANADOS MD; MARTHA PEREZ MD; MARIANO FERRELL MD;*EndCC*
== END 2019-01-05 15:35 | disposition home or self-care (01) ==
LOC: SDS 11:19
PROVIDERS: ATTEND Specialist
DX: M51.26 Other intervertebral disc displacement, lumbar region (principal); M48.061 Spinal stenosis, lumbar region without neurogenic claudication; M54.16 Radiculopathy, lumbar region; M54.30 Sciatica, unspecified side; I10 Essential (primary) hypertension; E03.9 Hypothyroidism, unspecified
CPT/HCPCS: 62323; 72020; 84703; J1040; J1170; J2405; Z7512; Z7610

== ENCOUNTER 2019-02-25 00:02 | Emergency (ER) | payer OTHER ==
[~2019-02-25] VITALS: Ht 162.6 cm; Wt 85.2 kg
[~2019-02-25 00:02] MED LIST changes: -DICL75TA2 PO; -OMEP40CA6 PO; +PANT40TA3 PO; -THY90 PO
[2019-02-25 00:05] VITALS: Ht 162.6 cm; Wt 85.2 kg
[2019-02-25] MEDS ORDERED: morphine 4 MG/ML VIAL IV STA (01:50)
[2019-02-25] MEDS ORDERED: ONDANSETRON 4 MG INJ IV STA (01:50)
[2019-02-25] MEDS ORDERED: SOD CHLORIDE 0.9% 500 ML IV STA (01:50)
[2019-02-25] MEDS ORDERED: HYDROmorphONE 0.5 MG/0.5 ML SYG IV STA (03:17)
[2019-02-25] MEDS ORDERED: TRAM50TA2 PO (05:44)
[2019-02-25] MEDS ORDERED: DOCU-144 PO (05:44)
[2019-02-25 06:00] VITALS: BP 118/75; PULSE 82; RESP 21
--- NOTE | 2019-03-21 17:43 | ERD ---
ER Documentation Chief Complaint Chief Complaint c/o RUQ abd pain x4 days. +n/v tonight. hx gallbladder removal. HPI This is a 53-year-old female who comes in with right upper abdominal pain for days. Positive nausea vomiting. She does have a history of gallbladder removal in the past. Denies any fevers or chills. Denies any other current issues. Pain is mild to moderate intensity with no exacerbating living factors. ROS All systems reviewed and are negative except as per history of present illness. Medications Home Meds Active Scripts Tramadol HCl (Tramadol HCl) 50 Mg Tablet, 50 MG PO Q4 PRN for PAIN, #20 TAB Prov:RYLAND GOTTI. 02/25/19 Docusate Sodium* (Colace*) 100 Mg Capsule, 100 MG PO BID, #20 CAP Prov:RYLAND GOTTI. 02/25/19 Reported Medications Pantoprazole* (Protonix*) 40 Mg Tablet.dr, 40 MG PO DAILY, TAB 01/05/19 valAcyclovir Hcl* (valACYclovir Hcl*) 500 Mg Tablet, 500 MG PO DAILY, TAB 05/18/18 Losartan Potassium* (Losartan Potassium*) 100 Mg Tablet, 100 MG PO DAILY, TAB 05/18/18 Amlodipine Besylate* (Norvasc*) 5 Mg Tablet, 5 MG PO DAILY, TAB 05/18/18 Allergies Allergies: Coded Allergies: No Known Allergy (Unverified , 02/25/19) PMhx/Soc History of Surgery: Yes (BRAIN ANEURYSM,HERNIA REPAIR, CHOLECYSTECTOMY) Anesthesia Reaction: No Hx Neurological Disorder: No Hx Respiratory Disorders: No Hx Cardiac Disorders: Yes (HTN) Hx Psychiatric Problems: No Hx Miscellaneous Medical Probl: No Hx Alcohol Use: No Hx Substance Use: No Hx Tobacco Use: Yes Smoking Status: Current every day smoker Physical Exam Physical Exam Const: No acute distress Head: Atraumatic Eyes: Normal Conjunctiva ENT: Normal External Ears, Nose and Mouth. Neck: Full range of motion. No meningismus. Resp: Clear to auscultation bilaterally Cardio: Regular rate and rhythm, no murmurs Abd: Soft, non tender, non distended. Normal bowel sounds Skin: No petechiae or rashes Back: No midline or flank tenderness Ext: No cyanosis, or edema Neur: Awake and alert Psych: Normal Mood and Affect Results 24 hrs Laboratory Tests Test 4/18/19 02:20 White Blood Count 13.7 10^3/ul Red Blood Count 4.73 10^6/ul Hemoglobin 12.8 g/dl Hematocrit 38.7 % Mean Corpuscular Volume 81.8 fl Mean Corpuscular Hemoglobin 27.1 pg Mean Corpuscular Hemoglobin Concent 33.1 g/dl Red Cell Distribution Width 15.9 % Platelet Count 308 10^3/UL Mean Platelet Volume 10.5 fl Immature Granulocytes % 0.400 % Neutrophils % 77.9 % Lymphocytes % 13.4 % Monocytes % 7.0 % Eosinophils % 1.1 % Basophils % 0.2 % Nucleated Red Blood Cells % 0.0 /100WBC Immature Granulocytes # 0.050 10^3/ul Neutrophils # 10.6 10^3/ul Lymphocytes # 1.8 10^3/ul Monocytes # 1.0 10^3/ul Eosinophils # 0.2 10^3/ul Basophils # 0.0 10^3/ul Nucleated Red Blood Cells # 0.0 10^3/ul Urine Color SPENCER Urine Clarity CLOUDY Urine pH 5.0 Urine Specific [place] 1.032 Urine Ketones TRACE mg/dL Urine Nitrite NEGATIVE mg/dL Urine Bilirubin NEGATIVE mg/dL Urine Urobilinogen NEGATIVE mg/dL Urine Leukocyte Esterase NEGATIVE Jeet/ul Urine Microscopic RBC 1 /HPF Urine Microscopic WBC 1 /HPF Urine Squamous Epithelial Cells FEW /HPF Urine Bacteria FEW /HPF Urine Mucus MANY /HPF Urine Hemoglobin NEGATIVE mg/dL Urine Glucose NEGATIVE mg/dL Urine Total Protein NEGATIVE mg/dl Sodium Level 141 mmol/L Potassium Level 3.5 mmol/L Chloride Level 108 mmol/L Carbon Dioxide Level 23 mmol/L Anion Gap 10 Blood Urea Nitrogen 20 mg/dl Creatinine 0.60 mg/dl Est Glomerular Filtrat Rate mL/min > 60 mL/min Glucose Level 107 mg/dl Calcium Level 9.2 mg/dl Total Bilirubin 0.2 mg/dl Direct Bilirubin 0.00 mg/dl Indirect Bilirubin 0.2 mg/dl Aspartate Amino Transf (AST/SGOT) 28 IU/L Alanine Aminotransferase (ALT/SGPT) 24 IU/L Alkaline Phosphatase 162 IU/L Total Protein 7.5 g/dl Albumin 4.6 g/dl Globulin 2.90 g/dl Albumin/Globulin Ratio 1.58 Lipase 147 U/L Current Medications Medications Dose Sig/Adonay Start Time Status Last (Trade) Ordered Route PRN Stop Time Admin Dose Reason Admin Sodium 500 ml @ Q1H STAT 02/25/19 DC 02/25/19 Chloride 500 mls/hr IV 01:50 02:16 02/25/19 02:49 Morphine 4 mg ONCE STAT 02/25/19 DC 02/25/19 Sulfate IV 01:50 02:16 (morphine) 02/25/19 01:51 Ondansetron 4 mg ONCE STAT 02/25/19 DC 02/25/19 HCl (Zofran IV 01:50 02:15 Inj) 02/25/19 01:51 1 mg ONCE STAT 02/25/19 DC 02/25/19 Hydromorphone IV 03:17 03:22 HCl 02/25/19 03:18 (Dilaudid) Procedures/MDM Medical decision making: Patient's gastrointestinal symptoms have stabilized while in the department. No evidence of severe dehydration, sepsis, or surgical abdomen. Extensive discussion with family and patient that occult disease cannot be ruled out. 8 hour recheck for repeat abdominal exam is planned. Departure Diagnosis: Primary Impression: Abdominal pain Abdominal location: unspecified location Qualified Codes: R10.9 - Unspecified abdominal pain Condition: Stable Patient Instructions: Abdominal Pain RYLAND GOTTI March 21, 2019 17:43
== END 2019-02-25 06:05 | disposition home or self-care (01) ==
LOC: E/R 00:02
DX: R10.11 Right upper quadrant pain (principal); I10 Essential (primary) hypertension; F17.210 Nicotine dependence, cigarettes, uncomplicated; R11.2 Nausea with vomiting, unspecified
CPT/HCPCS: 74176; 80053; 81001; 83690; 85025; J1170; J2270; J2405; J7040; Z7610; 36415; 96374; 96375

== ENCOUNTER 2019-04-16 10:57 | Day surgery (SDC) | payer OTHER ==
[2019-04-15 14:51] VITALS: BMI 30.1
[~2019-04-16] VITALS: Ht 165.1 cm; Wt 84.8 kg
[2019-04-16] VITALS (8 sets, daily range): BP systolic 108–133; BP diastolic 69–86; PULSE 78–90; RESP 16–28; Ht 165.1 cm; Wt 84.8 kg
[~2019-04-16 10:57] MED LIST changes: +DOCU-144 PO; +TRAM50TA2 PO
[2019-04-16] MEDS ORDERED: LACTATED RINGER'S 1,000 ML IV SCH (12:30)
[2019-04-16] MEDS ORDERED: CEFAZOLIN 1 GM/50 ML (PMX) 50 ML IVPB ONE (13:00)
[2019-04-16] MEDS ORDERED: THYR120T PO (13:00)
[2019-04-16] MEDS ORDERED: RANI150T5 PO (13:00)
--- NOTE | 2019-04-16 13:02 | HPN ---
Date/Time of Note Date/Time of Note DATE: 04/16/19 TIME: 13:02 KATIE GRANADOS MD Apr 16, 2019 13:02
--- NOTE | 2019-04-16 13:29 | PREAC ---
Date/Time of Note Date/Time of Note DATE: 04/16/19 TIME: 13:27 Anesthesia Eval and Record Evaluation Time Pre-Procedure Interview DATE: 04/16/19 TIME: 13:27 Age 53 Sex female NPO: 8 hrs Preoperative diagnosis LUMBAR SPONDYLOSIS Planned procedure LUMBAR EPIDURAL INJECTION Past Medical History Past Medical History: Includes Cardio: HTN Endo: Hypothyroid GI: Obesity, Other (GASTRITIS) Surgery & Anesthesia Issues No known issue Meds Anticoagulation: No Beta Roderick within 24 hr: No Reason Beta Roderick not given: Pt. not on B-Roderick Active Scripts Tramadol HCl (Tramadol HCl) 50 Mg Tablet, 50 MG PO Q4 PRN for PAIN, #20 TAB Prov:RYLAND GOTTI. 02/25/19 Docusate Sodium* (Colace*) 100 Mg Capsule, 100 MG PO BID, #20 CAP Prov:RYLAND GOTTI S. 02/25/19 Reported Medications Thyroid* ([place] Thyroid*) 120 Mg Tablet, 120 MG PO DAILY, TAB 04/16/19 Ranitidine Hcl* (Ranitidine Hcl*) 150 Mg Tablet, 150 MG PO DAILY, #30 TAB 04/16/19 Pantoprazole* (Protonix*) 40 Mg Tablet.dr, 40 MG PO DAILY, TAB 01/05/19 valAcyclovir Hcl* (valACYclovir Hcl*) 500 Mg Tablet, 500 MG PO DAILY, TAB 05/18/18 Losartan Potassium* (Losartan Potassium*) 100 Mg Tablet, 100 MG PO DAILY, TAB 05/18/18 Amlodipine Besylate* (Norvasc*) 5 Mg Tablet, 5 MG PO DAILY, TAB 05/18/18 Current Medications Cefazolin Sodium 50 ml @ 100 mls/hr ONCE ONCE IVPB ; Start 04/16/19 at 13:00; Stop 04/16/19 at 13:29 Lactated Ringer's 1,000 ml @ 0 mls/hr Q0M IV Last administered on 04/16/19at 13:01; Admin Dose 20 MLS/HR; Start 04/16/19 at 12:30 Meds reviewed: Yes Allergies Coded Allergies: No Known Allergy (Unverified , 02/25/19) Allergies Reviewed: Yes Labs/Studies Labs Reviewed: Reviewed by anesthesiologist test: Negative Pre-procedure Exam Last vitals Vital Signs Date Temp Pulse Resp B/P (MAP) Pulse Ox O2 O2 Flow FiO2 Time Delivery Rate 04/16/19 97.9 78 16 120/79 98 Room Air 12:38 (93) Airway: Adequate mouth opening, Adequate thyromental dist Mallampati: Mallampati I Teeth: Normal Lung: Normal Heart: Normal ASA Physical Status ASA physical status: 2 Emergency: None Planned Anesthetic General/MAC: MAC Planned Pain Management Parenteral pain med Pre-operative Attestations Prior to commencing anesthesia and surgery, the patient was re-evaluated, there was verification of: *The patient's identity *The results of appropriate recent lab work and preoperative vital signs *The above evaluation not changing prior to induction *Anesthetic plan, risk benefits, alternative and complications discussed with patient/family; questions answered; patient/family understands, accepts and wi shes to proceed. AADM MORRISON Apr 16, 2019 13:29
[2019-04-16] MEDS ORDERED: LIDOCAINE 1% (MPF) 30 ML INJ ONE (13:32)
[2019-04-16] MEDS ORDERED: SODIUM CL BACTERIOSTATIC 30 ML INJ ONE (13:32)
[2019-04-16] MEDS ORDERED: METHYLPREDNISOLONE ACET 80 MG/ML 1 ML ONE (13:32)
[2019-04-16] MEDS ORDERED: IOHEXOL 300MG/ML 30 ML BTL ONE (13:32)
[2019-04-16] MEDS ORDERED: MIDAZOLAM 1 MG/ML 2 ML INJ ONE (13:36)
[2019-04-16] MEDS ORDERED: FENTAnyl 50 MCG/ML VIAL ONE (13:36)
[2019-04-16] MEDS ORDERED: DIPHENHYDRAMINE 50 MG INJ IV PRN (14:00)
[2019-04-16] MEDS ORDERED: KETOROLAC 30 MG INJ IV PRN (14:00)
[2019-04-16] MEDS ORDERED: OXYCODONE/ACETAMINOPHEN (5/325) TAB PO PRN ×2 (14:00)
[2019-04-16] MEDS ORDERED: FENTAnyl 50 MCG/ML VIAL IV PRN ×3 (14:00)
[2019-04-16] MEDS ORDERED: MIDAZOLAM 1 MG/ML 2 ML INJ IV PRN (14:00)
[2019-04-16] MEDS ORDERED: hydrALAzine 20 MG INJ IV PRN (14:00)
[2019-04-16] MEDS ORDERED: ONDANSETRON 4 MG INJ IV PRN (14:00)
[2019-04-16] MEDS ORDERED: EPHEDrine 25 MG/5 ML SYG IV PRN (14:00)
[2019-04-16] MEDS ORDERED: LABETALOL HCL 20MG INJ IV PRN (14:00)
--- NOTE | 2019-04-16 14:02 | PAC ---
Date/Time of Note Date/Time of Note DATE: 04/16/19 TIME: 14:02 Post-Anesthesia Notes Post-Anesthesia Note Last documented vital signs Vital Signs Date Temp Pulse Resp B/P (MAP) Pulse Ox O2 O2 Flow FiO2 Time Delivery Rate 04/16/19 97.9 78 16 120/79 98 Room Air 1402 (93) Activity: WNL Respiratory function: WNL Cardiovascular function: WNL Mental status: Baseline Pain reasonably controlled: Yes Hydration appropriate: Yes Nausea/Vomiting absent: Yes ADAM MORRISON Apr 16, 2019 14:02
--- NOTE | 2019-04-16 14:40 | OPR ---
Date/Time of Note Date/Time of Note DATE: 04/16/19 TIME: 14:38 Operative Report Preoperative Diagnosis spinal stenosis Postoperative Diagnosis same Operation/Procedure Performed lumbar epidural steroid injection Surgeon see signature line Trading Manager none Anesthesia Type: MAC Estimated Blood Loss: none Transfusion none Specimen none Grafts/Implants none Complications none Procedure Description lumbar epidural steroid injetion KATIE GRANADOS MD Apr 16, 2019 14:40
--- NOTE | 2019-04-16 22:13 | OPR ---
DATE OF OPERATION: 04/16/2019 ANESTHESIA: MAC. PREOPERATIVE DIAGNOSES: Lumbar spondylosis, stenosis, and radiculopathy. POSTOPERATIVE DIAGNOSES: Lumbar spondylosis, stenosis, and radiculopathy. PROCEDURES PERFORMED: 1. Lumbar epidural steroid injection, L4-L5. 2. Lumbar epidural steroid injection, L5-S1. 3. Interpretation of intraoperative fluoroscopy x-ray. ESTIMATED BLOOD LOSS: None. COMPLICATIONS: None. DESCRIPTION OF THE PROCEDURE: The patient was taken to the operating room and placed in decubitus po sition. C-arm brought over the lumbar spine. Intravenous sedation provided by anesthesia. Back pre pped with ChloraPrep. A 22-gauge 3-1/2-inch spinal needle was introduced using the loss of resistanc e technique, identifying the levels with fluoroscopy. No CSF or blood aspirated. L4-L5 and L5-S1 le vels were injected with a total of 80 mg of Depo-Medrol and 2 mL of 1% Xylocaine. The patient tolera iván procedure well, anesthetic reversed and taken to recovery room in stable condition. Dictated By: KATIE ELIZABETH/ILANA Conf#: [id number] DID#: [id number]
== END 2019-04-16 14:50 | disposition home or self-care (01) ==
LOC: SDS 10:57
PROVIDERS: ATTEND Specialist
DX: M48.061 Spinal stenosis, lumbar region without neurogenic claudication (principal); M47.896 Other spondylosis, lumbar region; I10 Essential (primary) hypertension; E03.9 Hypothyroidism, unspecified
CPT/HCPCS: 62322; 72020; 84703; J0690; J2250; J3010; Z7512; Z7610; J1040; Q9967

== ENCOUNTER 2019-07-10 19:08 | Emergency (ER) | payer OTHER ==
[~2019-07-10] VITALS: Ht 167.6 cm; Wt 75.0 kg
[~2019-07-10 19:08] MED LIST changes: +ACET-141 PO; +RANI150T5 PO; +THYR120T PO
[2019-07-10 19:09] VITALS: Ht 167.6 cm; Wt 75.0 kg
[2019-07-10] MEDS ORDERED: ACETAMINOPHEN 325 MG TAB PO ONE (20:30)
== END 2019-07-10 22:39 | disposition home or self-care (01) ==
LOC: FTE 19:08
DX: S89.91XA Unspecified injury of right lower leg, initial encounter (principal); I10 Essential (primary) hypertension; W19.XXXA Unspecified fall, initial encounter; Y92.9 Unspecified place or not applicable
CPT/HCPCS: 73562; Z7502; Z7610